=== PATIENT | female | born 1965 | race Two or more races ===

== ENCOUNTER 2016-12-28 18:05 | Emergency (ER) | payer SELFPAY ==
[~2016-12-28] VITALS: Ht 167.6 cm; Wt 95.3 kg
[2016-12-28 18:18] VITALS: BP 148/89
[2016-12-28 18:49] LABS: Basophils # (auto) 0.1 uL; Basophils % (auto) 0.7 % (0.0-2.0); CONDITION Y; Eosinophils # (auto) 0.3 uL; Eosinophils % (auto) 3.9 % (0.0-7.0); Hematocrit 43.9 % (36.0-46.0); Hemoglobin 15.6 g/dL (12.2-16.2); Lymphocytes # (auto) 3.2 uL; Lymphocytes % (auto) 38.8 % (10.0-50.0); Mean Corpuscular Hemoglobin 31.8 pg (28.0-32.0); Mean Corpuscular Hgb Conc. 35.5 g/dL (32.0-36.0); Mean Corpuscular Volume 89.7 fL (80.0-100.0); Mean Platelet Volume 8.8 fL (7.4-10.4); Monocytes # (auto) 0.5 uL; Monocytes % (auto) 5.8 % (0.0-12.0); Neutrophils # (auto) 4.2 uL; Neutrophils % (auto) 50.8 % (37.0-80.0); Platelet Count (auto) 239 10^3/uL (140-450); Red Cell Distribution Width 12.9 % (11.6-16.0); White Blood Cell 8.3 10^3/uL (4.4-10.8)
[2016-12-28 19:24] LABS: Urine RBC None Seen /hpf (0 - 4)
[2016-12-28 19:28] LABS: Albumin 3.8 g/dL (3.4-5.0); Alkaline Phosphatase 88 U/L (45-117); Anion Gap 8 (5-15); Aspartate Aminotransferase 32 U/L (15-37); Bilirubin, Total 0.5 mg/dL (0.2-1.0); Blood Urea Nitrogen 12 mg/dL (7-18); Calcium 8.4 mg/dL (8.5-10.1); Carbon Dioxide 25 mmol/L (21-32); Chloride 104 mmol/L (98-107); GFR African American 104 mL/min; GFR Non-African American 86 mL/min; Glucose 117 mg/dL (74-106); Magnesium 2.6 mg/dL (1.6-2.6); Potassium 3.8 mmol/L (3.5-5.1); Sodium 137 mmol/L (136-145)
[2016-12-28 19:38] LABS: Urine Bilirubin Negative (Negative); Urine Blood Negative /uL (Negative); Urine Color Colorless (Yellow); Urine Glucose Normal (Normal); Urine Ketone Negative (Negative); Urine Nitrite Negative (Negative); Urine Squamous Epithelial Cell FEW /hpf (<5); Urine Urobilinogen Normal (Negative); Urine pH 6.5 (5.0-8.0)
== END 2016-12-28 20:57 | disposition left against medical advice (07) ==
LOC: ER 18:19
DX: R07.89 Other chest pain (principal); R42 Dizziness and giddiness; R20.0 Anesthesia of skin; R11.0 Nausea; Z53.21 Procedure and treatment not carried out due to patient leaving prior to being seen by health care provider
CPT/HCPCS: 36415; 71020; 80053; 81001; 83735; 84484; 85025

== ENCOUNTER 2018-12-27 13:11 | Emergency (ER) | payer BC, MEDICAID ==
[~2018-12-27] VITALS: Ht 154.9 cm; Wt 104.3 kg
[2018-12-27 14:19] LABS: Basophils # (auto) 0.1 uL; Basophils % (auto) 0.8 % (0.0-2.0); Eosinophils # (auto) 0.3 uL; Eosinophils % (auto) 4.1 % (0.0-7.0); Hematocrit 44.3 % (36.0-46.0); Hemoglobin 14.8 g/dL (12.2-16.2); Lymphocytes % (auto) 31.5 % (10.0-50.0); Mean Corpuscular Hemoglobin 32.1 pg (28.0-32.0); Mean Corpuscular Hgb Conc. 33.5 g/dL (32.0-36.0); Mean Corpuscular Volume 95.9 fL (80.0-100.0); Monocytes # (auto) 0.4 uL; Monocytes % (auto) 6.8 % (0.0-12.0); Neutrophils # (auto) 3.7 uL; Neutrophils % (auto) 56.8 % (37.0-80.0); Platelet Count (auto) 233 10^3/uL (140-450); Red Blood Cells 4.62 10^6/uL (4.0-5.20); Red Cell Distribution Width 13.7 % (11.8-14.3); White Blood Cell 6.4 10^3/uL (4.4-10.8)
[2018-12-27 14:42] LABS: Alanine Aminotransferase 52 U/L (13-56); Albumin 3.5 g/dL (3.4-5.0); Anion Gap 6 (5-15); Aspartate Aminotransferase 28 U/L (15-37); BUN/Creatinine Ratio 16.5; Blood Urea Nitrogen 14 mg/dL (7-18); Calcium 8.1 mg/dL (8.5-10.1); Carbon Dioxide 26 mmol/L (21-32); Chloride 108 mmol/L (98-107); GFR African American 96 mL/min; GFR Non-African American 79 mL/min; Glucose 100 mg/dL (74-106); Potassium 3.8 mmol/L (3.5-5.1); Sodium 140 mmol/L (136-145)
[2018-12-27 14:46] LABS: Alkaline Phosphatase 54 U/L (45-117); Bilirubin, Total 0.3 mg/dL (0.2-1.0); Total Protein 7.3 g/dL (6.4-8.2)
[2018-12-27 18:42] LABS: Urine Bacteria FEW /hpf (None Seen); Urine Blood 2+ /uL (Negative); Urine Mucus FEW (None Seen); Urine Specific Gravity 1.028 (1.001-1.035); Urine WBC 81 /hpf (0 - 5)
[2018-12-27] MEDS ORDERED: ONDANSETRON HCL 4 MG/2 ML VIAL IM ONE (18:45)
[2018-12-27] MEDS: FAMOTIDINE (10MG/ML) 2ML VL IV ONE ×2 (19:20→19:45)
[2018-12-27 19:55] VITALS: BP 142/81
== END 2018-12-27 20:00 | disposition home or self-care (01) ==
LOC: ER 13:11
DX: N39.0 Urinary tract infection, site not specified (principal); Z88.0 Allergy status to penicillin; Z91.018 Allergy to other foods; Z91.012 Allergy to eggs
CPT/HCPCS: 36415; 71046; 76705; 80053; 81001; 83690; 84484; 85025; 93005; 96372; 96374; 99284; J2405; J3490

== ENCOUNTER → 2019-04-14 | Outpatient (CLI) | payer BC ==
[2019-04-14 07:45] LABS: Basophils # (auto) 0 uL; Basophils % (auto) 0.7 % (0.0-2.0); Eosinophils # (auto) 0.2 uL; Eosinophils % (auto) 3.1 % (0.0-7.0); Hematocrit 43.7 % (36.0-46.0); Hemoglobin 14.9 g/dL (12.2-16.2); Lymphocytes # (auto) 1.7 uL; Lymphocytes % (auto) 24.6 % (10.0-50.0); Mean Corpuscular Hemoglobin 32.9 pg (28.0-32.0); Mean Corpuscular Hgb Conc. 34.2 g/dL (32.0-36.0); Mean Corpuscular Volume 96.2 fL (80.0-100.0); Monocytes # (auto) 0.5 uL; Monocytes % (auto) 6.5 % (0.0-12.0); Neutrophils # (auto) 4.5 uL; Neutrophils % (auto) 65.1 % (37.0-80.0); Platelet Count (auto) 237 10^3/uL (140-450); Red Blood Cells 4.54 10^6/uL (4.0-5.20); Red Cell Distribution Width 13.2 % (11.8-14.3); White Blood Cell 6.9 10^3/uL (4.4-10.8)
[2019-04-14 08:42] LABS: Albumin 3.9 g/dL (3.4-5.0); Calcium 8.8 mg/dL (8.5-10.1)
[2019-04-14 08:48] LABS: BUN/Creatinine Ratio 16.7
[2019-04-14 08:49] LABS: Bilirubin, Total 0.5 mg/dL (0.2-1.0); Total Protein 7.5 g/dL (6.4-8.2); Uric Acid 5.8 mg/dL (2.6-6.0)
[2019-04-14 08:59] LABS: Beta HCG, Quantitative < 1 mlU/mL (1-3); Thyroid Stimulating Hormone 3.47 uIU/mL (0.358-3.74)
== END | disposition home or self-care (01) ==
LOC: LAB 07:12
PROVIDERS: ATTEND Internal Medicine
DX: G47.00 Insomnia, unspecified (principal); F41.9 Anxiety disorder, unspecified; R10.2 Pelvic and perineal pain; R51 Headache
CPT/HCPCS: 36415; 80053; 80061; 84443; 84550; 84702; 85025; 86038; 86431

== ENCOUNTER 2019-04-20 14:18 | Emergency (ER) | payer BC ==
[~2019-04-20] VITALS: Ht 154.9 cm; Wt 100.7 kg
[2019-04-20 14:27] VITALS: BP 118/85
[2019-04-20] MEDS ORDERED: METHOCARBAMOL 500 MG TAB PO ONE (16:00)
== END 2019-04-20 17:22 | disposition home or self-care (01) ==
LOC: ER 14:21 → MERGE 14:21 → ER 17:22
DX: M25.562 Pain in left knee (principal); M54.5 Low back pain; Z91.018 Allergy to other foods; Z91.012 Allergy to eggs
CPT/HCPCS: 29505; 72100; 73562

== ENCOUNTER → 2019-06-13 | Outpatient (CLI) | payer BC ==
[2019-06-13 08:02] LABS: Basophils # (auto) 0 uL; Basophils % (auto) 0.6 % (0.0-2.0); Eosinophils # (auto) 0.2 uL; Eosinophils % (auto) 4.3 % (0.0-7.0); Hemoglobin 14.9 g/dL (12.2-16.2); Lymphocytes # (auto) 1.4 uL; Mean Corpuscular Hemoglobin 32.9 pg (28.0-32.0); Mean Corpuscular Volume 96.9 fL (80.0-100.0); Monocytes # (auto) 0.3 uL; Monocytes % (auto) 6.1 % (0.0-12.0); Neutrophils # (auto) 3.3 uL; Nucleated Red Blood Cells % 0.1 %; Platelet Count (auto) 234 10^3/uL (140-450); Red Blood Cells 4.54 10^6/uL (4.0-5.20); Red Cell Distribution Width 13.1 % (11.8-14.3); White Blood Cell 5.3 10^3/uL (4.4-10.8)
[2019-06-13 08:38] LABS: Potassium 4.2 mmol/L (3.5-5.1)
[2019-06-13 08:53] LABS: Albumin 3.6 g/dL (3.4-5.0); BUN/Creatinine Ratio 22.2; Bilirubin, Total 0.4 mg/dL (0.2-1.0); Calcium 8.6 mg/dL (8.5-10.1)
[2019-06-13 08:59] LABS: Beta HCG, Quantitative < 1 mlU/mL (1-3); Thyroid Stimulating Hormone 3.04 uIU/mL (0.358-3.74)
[2019-06-13 10:05] LABS: Leuteinizing Hormone 8.8 IU/L; Prolactin 9.69 ng/mL (2.8-29.2)
[2019-06-13 10:06] LABS: Follicle Stimulating Hormone 6.4 IU/L (SEE BELOW)
== END | disposition home or self-care (01) ==
LOC: LAB 07:19
PROVIDERS: ATTEND Internal Medicine
DX: N91.2 Amenorrhea, unspecified (principal)
CPT/HCPCS: 36415; 80053; 82670; 82672; 83001; 83002; 84144; 84146; 84443; 84702; 85025

== ENCOUNTER 2019-07-03 13:33 | Emergency (ER) | payer BC ==
[~2019-07-03] VITALS: Ht 154.9 cm; Wt 99.8 kg
[2019-07-03 14:57] LABS: Urine Bacteria NONE SEEN /hpf (None Seen); Urine Blood 1+ /uL (Negative); Urine Mucus FEW (None Seen); Urine Specific Gravity 1.031 (1.001-1.035); Urine WBC 11 /hpf (0 - 5)
[2019-07-03 15:02] LABS: Basophils # (auto) 0 uL; Eosinophils # (auto) 0.2 uL; Eosinophils % (auto) 4.9 % (0.0-7.0); Hematocrit 44.5 % (36.0-46.0); Hemoglobin 15.3 g/dL (12.2-16.2); Lymphocytes # (auto) 1.8 uL; Lymphocytes % (auto) 38.9 % (10.0-50.0); Mean Corpuscular Hemoglobin 32.9 pg (28.0-32.0); Mean Corpuscular Hgb Conc. 34.3 g/dL (32.0-36.0); Mean Corpuscular Volume 95.8 fL (80.0-100.0); Monocytes # (auto) 0.6 uL; Neutrophils # (auto) 1.9 uL; Neutrophils % (auto) 41.2 % (37.0-80.0); Nucleated Red Blood Cells % 0.2 %; Platelet Count (auto) 212 10^3/uL (140-450); Red Blood Cells 4.65 10^6/uL (4.0-5.20); Red Cell Distribution Width 13.5 % (11.8-14.3); White Blood Cell 4.6 10^3/uL (4.4-10.8)
[2019-07-03 15:22] LABS: Albumin 3.7 g/dL (3.4-5.0); Calcium 8.9 mg/dL (8.5-10.1); Potassium 4.2 mmol/L (3.5-5.1)
[2019-07-03 15:34] LABS: BUN/Creatinine Ratio 18.4; Bilirubin, Total 0.3 mg/dL (0.2-1.0); Total Protein 7.3 g/dL (6.4-8.2)
[2019-07-03 17:39] LABS: Magnesium 2.2 mg/dL (1.6-2.6)
[2019-07-03] MEDS ORDERED: ALBUTEROL SULF 2.5 MG/0.5ML(0.5%) NEB SOLN NEB ONE (18:30)
[2019-07-03] MEDS ORDERED: IPRATROPIUM BROM 0.5 MG/2.5ML INH SOL NEB ONE (18:30)
[2019-07-03] MEDS ORDERED: ASPirin 81 mg TAB PO ONE (18:30)
[2019-07-03 19:36] VITALS: BP 125/60
[2019-07-03] MEDS ORDERED: methylPREDNISolone SOD SUCC 125 MG/2 ML VL IV ONE (20:15)
[2019-07-03] MEDS ORDERED: KETOROLAC TROMETH 15 mg/ml 1ML VL IV ONE (20:15)
[2019-07-03] MEDS ORDERED: ONDANSETRON HCL 4 MG/2 ML VIAL ONE (20:36)
[2019-07-03] MEDS ORDERED: ONDANSETRON HCL 4 MG/2 ML VIAL IV ONE (20:45)
== END 2019-07-03 21:35 | disposition home or self-care (01) ==
LOC: ER 13:33
DX: J20.9 Acute bronchitis, unspecified (principal); N39.0 Urinary tract infection, site not specified; R07.81 Pleurodynia
CPT/HCPCS: 36415; 71046; 80053; 81001; 83735; 84484; 84702; 85025; 85379; 93005; 94640; 96374; 96375; 99285; J1885; J2405; J2930; J7611; J7644

== ENCOUNTER → 2019-07-07 | Emergency (ER) | payer BC ==
[~2019-07-07] VITALS: Ht 154.9 cm; Wt 99.8 kg
[~2019-07-07] MED LIST: ACETAMINOPHEN 325 MG TAB PO ONE; SODIUM CHLORIDE 0.9% 2,000 ML IV ONE
[2019-07-07 16:57] LABS: Basophils # (auto) 0 uL; Basophils % (auto) 0.2 % (0.0-2.0); Eosinophils # (auto) 0 uL; Hematocrit 45.7 % (36.0-46.0); Hemoglobin 15.4 g/dL (12.2-16.2); Lymphocytes # (auto) 1.1 uL; Lymphocytes % (auto) 15.4 % (10.0-50.0); Mean Corpuscular Hemoglobin 32.3 pg (28.0-32.0); Mean Corpuscular Hgb Conc. 33.7 g/dL (32.0-36.0); Mean Corpuscular Volume 95.9 fL (80.0-100.0); Monocytes # (auto) 0.2 uL; Monocytes % (auto) 3.1 % (0.0-12.0); Neutrophils # (auto) 5.8 uL; Neutrophils % (auto) 81.3 % (37.0-80.0); Platelet Count (auto) 246 10^3/uL (140-450); Red Blood Cells 4.77 10^6/uL (4.0-5.20); Red Cell Distribution Width 13.1 % (11.8-14.3); White Blood Cell 7.2 10^3/uL (4.4-10.8)
[2019-07-07 17:07] LABS: Alanine Aminotransferase 38 U/L (13-56); Albumin 3.8 g/dL (3.4-5.0); Anion Gap 8 (5-15); Blood Urea Nitrogen 15 mg/dL (7-18); Calcium 8.6 mg/dL (8.5-10.1); Carbon Dioxide 23 mmol/L (21-32); Chloride 105 mmol/L (98-107); Glucose 170 mg/dL (74-106); Potassium 3.9 mmol/L (3.5-5.1); Sodium 136 mmol/L (136-145)
[2019-07-07 17:13] LABS: Alkaline Phosphatase 58 U/L (45-117); Aspartate Aminotransferase 16 U/L (15-37); BUN/Creatinine Ratio 17.4; Bilirubin, Total 0.2 mg/dL (0.2-1.0); GFR African American 94 mL/min; GFR Non-African American 78 mL/min; Total Protein 7.8 g/dL (6.4-8.2)
[2019-07-07 20:07] LABS: INR 0.96 (0.9-1.15); Partial Thromboplastin Time 25.9 sec (23.64-32.05)
[2019-07-07 20:10] LABS: Urine Bacteria FEW /hpf (None Seen); Urine Blood 3+ /uL (Negative); Urine Mucus FEW (None Seen); Urine Specific Gravity 1.011 (1.001-1.035); Urine WBC 20 /hpf (0 - 5)
[2019-07-08 00:51] VITALS: BP 123/71
== END | disposition home or self-care (01) ==
LOC: ER 15:43
DX: J45.901 Unspecified asthma with (acute) exacerbation (principal); J01.00 Acute maxillary sinusitis, unspecified; N39.0 Urinary tract infection, site not specified
CPT/HCPCS: 36415; 71046; 80053; 81001; 83605; 84484; 85025; 85379; 85610; 85730; 87040; 87804; 99284; J7030

== ENCOUNTER 2019-07-15 12:03 | Inpatient (IN) | payer BC, MEDICAID ==
[~2019-07-15] VITALS: Ht 154.9 cm; Wt 109.1 kg
[2019-07-15] MEDS ORDERED: IPRATROPIUM BROM 0.5 MG/2.5ML INH SOL NEB ONE (12:45)
[2019-07-15] MEDS ORDERED: ALBUTEROL SULF 2.5 MG/0.5ML(0.5%) NEB SOLN NEB ONE (12:45)
[2019-07-15] MEDS ORDERED: methylPREDNISolone SOD SUCC 1,000 MG in SODIUM CHL 0.9% 250 ML IV ONE (13:00)
[2019-07-15 13:13] LABS: Basophils # (auto) 0.1 10 ^3/uL (0-0.2); Basophils % (auto) 0.5 % (0.0-2.0); Eosinophils # (auto) 0.1 10 ^3/uL (0-0.8); Eosinophils % (auto) 1.2 % (0.0-7.0); Hematocrit 43.8 % (36.0-46.0); Hemoglobin 14.9 g/dL (12.2-16.2); Lymphocytes # (auto) 2.5 10 ^3/uL (0.4-5.4); Mean Corpuscular Hemoglobin 32.5 pg (28.0-32.0); Mean Corpuscular Hgb Conc. 34.1 g/dL (32.0-36.0); Mean Corpuscular Volume 95.6 fL (80.0-100.0); Monocytes # (auto) 0.8 10 ^3/uL (0-1.3); Monocytes % (auto) 7.5 % (0.0-12.0); Neutrophils # (auto) 7.5 10 ^3/uL (1.6-8.6); Neutrophils % (auto) 67.8 % (37.0-80.0); Nucleated Red Blood Cells % 0.1 %; Platelet Count (auto) 251 10^3/uL (140-450); Red Blood Cells 4.58 10^6/uL (4.0-5.20); Red Cell Distribution Width 13.2 % (11.8-14.3)
[2019-07-15 13:28] LABS: Calcium 8.5 mg/dL (8.5-10.1); Potassium 3.5 mmol/L (3.5-5.1)
[2019-07-15 13:31] LABS: Albumin 3.8 g/dL (3.4-5.0)
[2019-07-15 13:34] LABS: Bilirubin, Total 0.4 mg/dL (0.2-1.0); Total Protein 7.4 g/dL (6.4-8.2)
[2019-07-15] MEDS ORDERED: levoFLOXacin 500MG 100 ML IV ONE (14:45)
[2019-07-15] MEDS ORDERED: LACTULOSE 20Gm/30ML SOLN PO PRN ×2 (16:15)
[2019-07-15] MEDS ORDERED: TEMAZEPAM 15 MG CAP PO PRN (16:15)
[2019-07-15] MEDS ORDERED: NITROGLYCERIN 0.4 MG SL TAB SL PRN (16:15)
[2019-07-15] MEDS ORDERED: PROMETHAZINE HCL 25 MG/ML 1ML IV PRN (16:15)
[2019-07-15] MEDS ORDERED: MORPHINE SULF INJ 2 MG/ML SYRINGE 1ML IV PRN (16:15)
[2019-07-15] MEDS: SODIUM CHLORIDE 0.9% 1,000 ML IV SCH ×2 (17:11→18:43)
[2019-07-15 18:08] VITALS: BP 130/88
--- NOTE | 2019-07-15 19:05 | NUR ---
PT CHECKED FOR PRN TX. PT IS RESTING WITH NO ACUTE DISTRESS NOTED. TX IS NOT INDICATED. PT TO CALL IF TX IS NEEDED. HR 106 RR 18 POX 92 ON ROOM AIR. B/S CLEAR.
[2019-07-15 19:27] LABS: CRP High Sensitivity > 0.950 mg/dL (< 0.3)
--- NOTE | 2019-07-15 19:30 | NUR ---
Opening Shift Note Assumed care of patient, awake and alert. No S/S of distress/SOB or pain. Bed in lowest locked position, side rails up x2, call light within reach. at bedside. Instructed on POC and to call for assist PRN, will continue to monitor for changes Q1hr and PRN.
[2019-07-15] MEDS: FAMOTIDINE 20 MG TAB PO SCH (21:16)
[2019-07-15] MEDS: traMADol HCL 50 MG TAB PO PRN (21:17)
[2019-07-15 22:00] VITALS: BP 124/68
[2019-07-15 22:06] LABS: Urine Bacteria NONE SEEN /hpf (None Seen); Urine Blood 2+ /uL (Negative); Urine Mucus FEW (None Seen); Urine Specific Gravity 1.026 (1.001-1.035); Urine WBC <1 /hpf (0 - 5)
[2019-07-15] MEDS: ACETAMINOPHEN 500 MG TAB PO PRN (22:09)
--- NOTE | 2019-07-15 22:10 | NUR ---
Patient reporting 4/10 sternal pain, Tramadol administered as ordered at 2116. Pain reassessed and found to be now 4/10 pain. Patient made aware Tylenol available, patient requesting Tylenol at this time. Will administer as ordered and continue to monitor.
[2019-07-15 22:12] LABS: Alcohol, Urine < 3.0 mg/dL (0-5); Amphetamine Screen, Urine NEGATIVE (NEGATIVE); Barbiturate Scree,Urine NEGATIVE (NEGATIVE); Benzodiazephine Screen, Urine NEGATIVE (NEGATIVE); Cannabinoid Screen, Urine NEGATIVE (NEGATIVE); Cocaine Screen, Urine NEGATIVE (NEGATIVE); Opiate Scree,Urine NEGATIVE (NEGATIVE); Phencyclidine Screen, Urine NEGATIVE (NEGATIVE)
[2019-07-15] MEDS: ALBUTEROL SULF 2.5 MG/0.5ML(0.5%) NEB SOLN NEB PRN (22:45)
--- NOTE | 2019-07-15 23:09 | NUR ---
Patient reporting 0/10 pain at this time. No s/s of distress. Will continue to monitor.
[2019-07-15 23:13] VITALS: BP 124/68
[2019-07-16 05:00] VITALS: BP 123/71
--- NOTE | 2019-07-16 05:05 | NUR ---
Patient reporting 2/10 pain during morning vital sign check. Patient refusing pain medication and alternative pain relief at this time. No s/s of distress. Will continue to monitor.
--- NOTE | 2019-07-16 06:40 | NUR ---
Closing Note Patient lying in bed, awake and alert. Bed in lowest locked position, side rails up x2, call light within reach. No s/s of distress. Care endorsed to dayshift RN.
--- NOTE | 2019-07-16 07:29 | NUR ---
pt assessed for prn hhn tx. pt is on room air, spo2 94%, hr 105, rr 18. hhn not indicated. will continue to monitor.
[2019-07-16 08:00] VITALS: BP 132/90
[2019-07-16 09:00] VITALS: BP 132/90
[2019-07-16] MEDS ORDERED: IPRATROPIUM BROM 0.5 MG/2.5ML INH SOL NEB ONE (09:30)
[2019-07-16] MEDS ORDERED: ALBUTEROL SULF 2.5 MG/0.5ML(0.5%) NEB SOLN NEB ONE (09:30)
[2019-07-16] MEDS: FAMOTIDINE 20 MG TAB PO SCH ×2 (09:50→21:42)
[2019-07-16] MEDS: ASPirin 81 mg TAB PO SCH (09:50)
[2019-07-16] MEDS: ENOXAPARIN SOD 40 MG/0.4 ML SYRINGE SC SCH (09:51)
[2019-07-16 10:31] LABS: Basophils # (auto) 0 10 ^3/uL (0-0.2); Basophils % (auto) 0.2 % (0.0-2.0); Eosinophils # (auto) 0 10 ^3/uL (0-0.8); Hematocrit 43.9 % (36.0-46.0); Hemoglobin 14.9 g/dL (12.2-16.2); Lymphocytes # (auto) 1.1 10 ^3/uL (0.4-5.4); Lymphocytes % (auto) 5.9 % (10.0-50.0); Mean Corpuscular Hemoglobin 32.8 pg (28.0-32.0); Mean Corpuscular Volume 96.7 fL (80.0-100.0); Monocytes # (auto) 0.4 10 ^3/uL (0-1.3); Neutrophils # (auto) 17.2 10 ^3/uL (1.6-8.6); Neutrophils % (auto) 91.9 % (37.0-80.0); Platelet Count (auto) 253 10^3/uL (140-450); Red Blood Cells 4.54 10^6/uL (4.0-5.20); Red Cell Distribution Width 13.3 % (11.8-14.3); White Blood Cell 18.7 10^3/uL (4.4-10.8)
[2019-07-16 10:56] LABS: Cholesterol 185 mg/dL (< 200); Triglycerides 63 mg/dL (< 150)
[2019-07-16 10:59] LABS: HDL Cholesterol 59 mg/dL (40-59); LDL Cholesterol 109 mg/dL (< 100)
[2019-07-16 11:26] LABS: Calcium 8.6 mg/dL (8.5-10.1); Magnesium 2.3 mg/dL (1.6-2.6); Potassium 3.8 mmol/L (3.5-5.1)
[2019-07-16 11:31] LABS: BUN/Creatinine Ratio 18.2
[2019-07-16] MEDS: IPRATROPIUM BROM 0.5 MG/2.5ML INH SOL NEB SCH ×3 (11:53→23:35)
[2019-07-16] MEDS: ACETAMINOPHEN 500 MG TAB PO PRN (12:55)
[2019-07-16 13:00] VITALS: BP 117/70
[2019-07-16 17:00] VITALS: BP 121/73
[2019-07-16] MEDS: SODIUM CHLORIDE 0.9% 1,000 ML IV SCH (17:53)
--- NOTE | 2019-07-16 19:20 | NUR ---
Opening Shift Note Assumed care of patient, eyes closed, respirations even and unlabored, appears asleep. No S/S of distress/SOB or pain. Bed in lowest locked position, side rails up x2, call light within reach. Instructed on POC and to call for assist PRN, will continue to monitor for changes Q1hr and PRN.
[2019-07-16] MEDS: ALBUTEROL SULF 2.5 MG/0.5ML(0.5%) NEB SOLN NEB PRN ×2 (19:24→23:36)
[2019-07-16] MEDS: traMADol HCL 50 MG TAB PO PRN (21:43)
[2019-07-16 22:00] VITALS: BP 103/63
--- NOTE | 2019-07-16 23:34 | NUR ---
Patient reporting 10/10 sternal pain, patient requesting Tramadol, Tramadol administered as ordered at 2143. Pain reassessed and found to be now 0/10 pain. Patient lying in bed, awake and alert, no s/s of distress. Will continue to monitor.
[2019-07-17 05:00] VITALS: BP 107/74
[2019-07-17] MEDS: IPRATROPIUM BROM 0.5 MG/2.5ML INH SOL NEB SCH ×2 (06:16→11:20)
--- NOTE | 2019-07-17 07:00 | NUR ---
Closing Note Patient lying in bed, eyes closed, respirations even and unlabored, appears asleep. Bed in lowest locked position, side rails up x2, call light within reach. No s/s of distress. Care endorsed to dayshift RN.
[2019-07-17 08:00] VITALS: BP 138/94
[2019-07-17 08:26] VITALS: BP 138/94
[2019-07-17] MEDS: SODIUM CHLORIDE 0.9% 1,000 ML IV SCH (08:52)
[2019-07-17] MEDS: ASPirin 81 mg TAB PO SCH (10:06)
[2019-07-17] MEDS: FAMOTIDINE 20 MG TAB PO SCH (10:06)
[2019-07-17] MEDS: ENOXAPARIN SOD 40 MG/0.4 ML SYRINGE SC SCH (10:06)
[2019-07-17 12:30] VITALS: BP 123/67
[2019-07-17 14:23] VITALS: BP 100/61
--- NOTE | 2019-07-17 15:11 | NUR ---
PATIENT DISCHARGED HOME WITH FAMILY. TELEMETRY BOX REMOVED AND RETURNED TO TELEMETRY. ALL DISCHARGE PAPERWORK SIGNED. ALL DISCHARGE INSTRUCTIONS GIVEN.
== END 2019-07-17 15:10 | disposition home or self-care (01) | DRG 202 ==
LOC: ER 12:10 → TELE 12:11 → TELE-WESTW 17:44
PROVIDERS: ADMIT Internal Medicine; ATTEND Internal Medicine
DX: J20.9 Acute bronchitis, unspecified (principal); J18.9 Pneumonia, unspecified organism; Z68.42 Body mass index [BMI] 45.0-49.9, adult; J98.11 Atelectasis; F41.9 Anxiety disorder, unspecified; D72.829 Elevated white blood cell count, unspecified; R07.89 Other chest pain; E66.9 Obesity, unspecified; Z91.012 Allergy to eggs; Z91.018 Allergy to other foods; Z82.49 Family history of ischemic heart disease and other diseases of the circulatory system; Z80.9 Family history of malignant neoplasm, unspecified
CPT/HCPCS: 36415; 71046; 71250; 80048; 80053; 80061; 80307; 81001; 82550; 83036; 83735; 83880; 84439; 84443; 84484; 85025; 85379; 85652; 86141; 87804; 93005; 93306; 94640; 96365; 96366; 96368; G0378; J1956

== ENCOUNTER → 2019-08-29 | Outpatient (CLI) | payer BC | END | disposition home or self-care (01) | LOC: LAB 11:01 | PROVIDERS: ATTEND Specialist | DX: N91.2 Amenorrhea, unspecified (principal) | CPT/HCPCS: 36415; 84702 ==

== ENCOUNTER → 2019-11-07 | Outpatient (CLI) | payer OTHER | END | disposition home or self-care (01) | LOC: LAB 11:17 | PROVIDERS: ATTEND Physician Assistant | DX: Z03.818 Encounter for observation for suspected exposure to other biological agents ruled out (principal) | CPT/HCPCS: 87635 ==

== ENCOUNTER 2020-01-12 09:49 | Emergency (ER) | payer BC ==
[~2020-01-12] VITALS: Ht 154.9 cm; Wt 102.1 kg
[2020-01-12 10:27] LABS: Basophils # (auto) 0.1 10 ^3/uL (0-0.2); Basophils % (auto) 1.4 % (0.0-2.0); Eosinophils # (auto) 0.2 10 ^3/uL (0-0.8); Eosinophils % (auto) 3.1 % (0.0-7.0); Hematocrit 42.5 % (36.0-46.0); Hemoglobin 14.9 g/dL (12.2-16.2); Lymphocytes # (auto) 1.9 10 ^3/uL (0.4-5.4); Lymphocytes % (auto) 24.7 % (10.0-50.0); Mean Corpuscular Hemoglobin 33.5 pg (28.0-32.0); Mean Corpuscular Hgb Conc. 35.1 g/dL (32.0-36.0); Mean Corpuscular Volume 95.4 fL (80.0-100.0); Monocytes # (auto) 0.5 10 ^3/uL (0-1.3); Monocytes % (auto) 7.2 % (0.0-12.0); Neutrophils # (auto) 4.8 10 ^3/uL (1.6-8.6); Neutrophils % (auto) 63.6 % (37.0-80.0); Platelet Count (auto) 246 10^3/uL (140-450); Red Blood Cells 4.45 10^6/uL (4.0-5.20); Red Cell Distribution Width 13.1 % (11.8-14.3); White Blood Cell 7.6 10^3/uL (4.4-10.8)
[2020-01-12] MEDS ORDERED: ONDANSETRON HCL 4 MG/2 ML VIAL IV ONE (10:30)
[2020-01-12] MEDS ORDERED: MORPHINE SULFATE 4 MG/ML SYR/VIAL IV ONE (10:30)
[2020-01-12 10:36] VITALS: BP 123/57
[2020-01-12 10:43] LABS: Albumin 3.9 g/dL (3.4-5.0); Calcium 8.4 mg/dL (8.5-10.1); Potassium 3.8 mmol/L (3.5-5.1)
[2020-01-12 10:46] LABS: BUN/Creatinine Ratio 22.6; Bilirubin, Total 0.4 mg/dL (0.2-1.0)
[2020-01-12 11:20] LABS: Urine Bacteria NONE SEEN /hpf (None Seen); Urine Blood 3+ /uL (Negative); Urine WBC 287 /hpf (0 - 5)
[2020-01-12 11:36] LABS: Urine Specific Gravity 1.023 (1.001-1.035)
[2020-01-12] MEDS ORDERED: cefTRIAXone 1GM/50ML D5W 50 ML IV ONE (12:00)
== END 2020-01-12 14:25 | disposition home or self-care (01) ==
LOC: EEVIPCON 09:49 → ER 09:49
DX: N39.0 Urinary tract infection, site not specified (principal); N93.9 Abnormal uterine and vaginal bleeding, unspecified; Z91.012 Allergy to eggs; Z91.018 Allergy to other foods
CPT/HCPCS: 36415; 76830; 76856; 80053; 81001; 84702; 85025; 96365; 96375; 99284; J0696; J2270; J2405

== ENCOUNTER → 2020-01-12 | Outpatient (CLI) | payer BC ==
[2020-01-12 07:49] LABS: Basophils # (auto) 0.1 10 ^3/uL (0-0.2); Eosinophils # (auto) 0.2 10 ^3/uL (0-0.8); Hematocrit 43.2 % (36.0-46.0); Hemoglobin 14.6 g/dL (12.2-16.2); Lymphocytes # (auto) 1.6 10 ^3/uL (0.4-5.4); Lymphocytes % (auto) 28.5 % (10.0-50.0); Mean Corpuscular Hemoglobin 32.8 pg (28.0-32.0); Mean Corpuscular Hgb Conc. 33.9 g/dL (32.0-36.0); Mean Corpuscular Volume 96.7 fL (80.0-100.0); Monocytes # (auto) 0.5 10 ^3/uL (0-1.3); Monocytes % (auto) 8.5 % (0.0-12.0); Neutrophils # (auto) 3.3 10 ^3/uL (1.6-8.6); Nucleated Red Blood Cells % 0.1 %; Platelet Count (auto) 230 10^3/uL (140-450); Red Blood Cells 4.46 10^6/uL (4.0-5.20); Red Cell Distribution Width 13.2 % (11.8-14.3); White Blood Cell 5.7 10^3/uL (4.4-10.8)
[2020-01-12 08:15] LABS: Potassium 3.8 mmol/L (3.5-5.1)
[2020-01-12 08:22] LABS: Albumin 3.9 g/dL (3.4-5.0); BUN/Creatinine Ratio 19.5; Bilirubin, Total 0.4 mg/dL (0.2-1.0); Calcium 8.3 mg/dL (8.5-10.1); Total Protein 7.1 g/dL (6.4-8.2)
== END | disposition home or self-care (01) ==
LOC: LAB 07:20
PROVIDERS: ATTEND Internal Medicine
DX: R10.2 Pelvic and perineal pain (principal)
CPT/HCPCS: 36415; 80053; 84702; 85025

== ENCOUNTER → 2020-01-13 | Outpatient (CLI) | payer BC ==
[2020-01-13 12:20] LABS: Basophils # (auto) 0.1 10 ^3/uL (0-0.2); Eosinophils # (auto) 0.3 10 ^3/uL (0-0.8); Eosinophils % (auto) 3.5 % (0.0-7.0); Hematocrit 42.2 % (36.0-46.0); Hemoglobin 14.3 g/dL (12.2-16.2); Lymphocytes # (auto) 1.9 10 ^3/uL (0.4-5.4); Lymphocytes % (auto) 26.4 % (10.0-50.0); Mean Corpuscular Hemoglobin 32.6 pg (28.0-32.0); Mean Corpuscular Hgb Conc. 33.8 g/dL (32.0-36.0); Mean Corpuscular Volume 96.5 fL (80.0-100.0); Monocytes # (auto) 0.4 10 ^3/uL (0-1.3); Monocytes % (auto) 6.1 % (0.0-12.0); Neutrophils # (auto) 4.6 10 ^3/uL (1.6-8.6); Platelet Count (auto) 226 10^3/uL (140-450); Red Blood Cells 4.37 10^6/uL (4.0-5.20); Red Cell Distribution Width 13.3 % (11.8-14.3); White Blood Cell 7.2 10^3/uL (4.4-10.8)
== END | disposition home or self-care (01) ==
LOC: LAB 12:02
PROVIDERS: ATTEND Specialist
DX: N93.9 Abnormal uterine and vaginal bleeding, unspecified (principal)
CPT/HCPCS: 36415; 85025

== ENCOUNTER → 2020-01-20 | Outpatient (CLI) | payer BC ==
[2020-01-20 08:27] LABS: Potassium 4.3 mmol/L (3.5-5.1)
[2020-01-20 08:38] LABS: Albumin 3.8 g/dL (3.4-5.0); BUN/Creatinine Ratio 26.3; Bilirubin, Total 0.4 mg/dL (0.2-1.0); Calcium 8.9 mg/dL (8.5-10.1); Total Protein 7.3 g/dL (6.4-8.2)
== END | disposition home or self-care (01) ==
LOC: LAB 07:16
PROVIDERS: ATTEND Specialist
DX: N93.9 Abnormal uterine and vaginal bleeding, unspecified (principal)
CPT/HCPCS: 36415; 80053

== ENCOUNTER 2020-03-16 09:03 | Inpatient (IN) | payer BC ==
[2020-03-12 12:46] LABS: Basophils # (auto) 0 10 ^3/uL (0-0.2); Basophils % (auto) 0.6 % (0.0-2.0); Eosinophils # (auto) 0.2 10 ^3/uL (0-0.8); Eosinophils % (auto) 2.8 % (0.0-7.0); Hematocrit 41.9 % (36.0-46.0); Hemoglobin 14.3 g/dL (12.2-16.2); Lymphocytes # (auto) 2.2 10 ^3/uL (0.4-5.4); Lymphocytes % (auto) 30.8 % (10.0-50.0); Mean Corpuscular Hemoglobin 32.8 pg (28.0-32.0); Mean Corpuscular Hgb Conc. 34.2 g/dL (32.0-36.0); Mean Corpuscular Volume 96.1 fL (80.0-100.0); Monocytes # (auto) 0.5 10 ^3/uL (0-1.3); Monocytes % (auto) 6.8 % (0.0-12.0); Neutrophils # (auto) 4.2 10 ^3/uL (1.6-8.6); Nucleated Red Blood Cells % 0.1 %; Platelet Count (auto) 244 10^3/uL (140-450); Red Blood Cells 4.36 10^6/uL (4.0-5.20); Red Cell Distribution Width 12.9 % (11.8-14.3); Urine Bacteria FEW /hpf (None Seen); Urine Blood 1+ /uL (Negative); Urine Mucus FEW (None Seen); Urine Specific Gravity 1.019 (1.001-1.035); Urine WBC 15 /hpf (0 - 5); White Blood Cell 7.1 10^3/uL (4.4-10.8)
[2020-03-12 12:56] LABS: INR 0.97 (0.9-1.15); Partial Thromboplastin Time 27.1 sec (23.0-31.2)
[2020-03-12 13:54] LABS: Albumin 3.8 g/dL (3.4-5.0); Calcium 8.8 mg/dL (8.5-10.1); Potassium 3.5 mmol/L (3.5-5.1)
[2020-03-12 13:59] LABS: BUN/Creatinine Ratio 19.2; Bilirubin, Total 0.4 mg/dL (0.2-1.0); Total Protein 7.1 g/dL (6.4-8.2)
[~2020-03-16] VITALS: Ht 154.9 cm; Wt 112.1 kg
[2020-03-16] MEDS ORDERED: fentaNYL CITRATE 100 MCG/2 ML VL ONE ×2 (12:42→13:52)
[2020-03-16] MEDS ORDERED: KETOROLAC TROMETH 30 MG/ML 1ML VIAL ONE (12:42)
[2020-03-16] MEDS ORDERED: DexAMETHasone SOD PHOS 10MG/1ML VIAL INJ ONE (12:42)
[2020-03-16] MEDS ORDERED: ONDANSETRON HCL 4 MG/2 ML VIAL ONE (12:42)
[2020-03-16] MEDS ORDERED: PROPOFOL 10 MG/ML 20 ML IV ONE (12:42)
[2020-03-16] MEDS ORDERED: GLYCOPYRROLATE 0.2 MG/ML 1ML VIAL ONE (12:42)
[2020-03-16] MEDS ORDERED: MEPERIDINE HCL (50 MG/ML) 1 ML VIAL ONE (12:42)
[2020-03-16] MEDS ORDERED: ROCURONIUM 10MG/ML 10ML VIAL IV ONE (12:42)
[2020-03-16] MEDS ORDERED: LIDOCAINE 2% (LOCAL ANESTH.) PF 5ml SDV ONE (12:42)
[2020-03-16] MEDS ORDERED: MIDAZOLAM HCL 1MG/1ML-2 ML VIAL ONE (12:42)
[2020-03-16] MEDS ORDERED: ceFAZolin 1GM/50ML 50 ML IV ONE (12:58)
[2020-03-16] MEDS ORDERED: ONDANSETRON HCL 4 MG/2 ML VIAL IV PRN (14:45)
[2020-03-16] MEDS ORDERED: HYDROmorphone HCL 2 MG/ML VL IV PRN (14:45)
[2020-03-16] MEDS ORDERED: ACETAMINOPHEN IV 100 ML IV ONE (15:00)
[2020-03-16 17:00] VITALS: BP 117/74
[2020-03-16] MEDS: LACTATED RINGER'S 1,000 ML IV SCH ×2 (17:10→21:40)
[2020-03-16] MEDS ORDERED: PNEUMOCOCCAL VACC POLYS 25 MCG/0.5 ML VIAL IM ONE (18:00)
[2020-03-16] MEDS: HYDROmorphone HCL 2 MG/ML VL IV PRN (18:30)
[2020-03-16 22:00] VITALS: BP 129/68
[2020-03-17] MEDS: LACTATED RINGER'S 1,000 ML IV SCH ×2 (04:20→11:00)
[2020-03-17 05:00] VITALS: BP 108/58
[2020-03-17] MEDS: HYDROmorphone HCL 2 MG/ML VL IV PRN ×4 (05:04→14:03)
[2020-03-17] MEDS: ONDANSETRON HCL 4 MG/2 ML VIAL IV PRN ×4 (05:05→14:03)
[2020-03-17 09:00] VITALS: BP 123/73
[2020-03-17 13:00] VITALS: BP 108/52
[2020-03-17] MEDS ORDERED: cefTRIAXone 1GM/50ML D5W 50 ML IV ONE ×2 (13:00)
--- NOTE | 2020-03-17 14:00 | NUR ---
REPLACED ABDOMINAL BINDER WITH A LARGE ONE. ABDOMINAL INCISION DRESSINGS CLEAN, DRY, AND INTACT.
--- NOTE | 2020-03-17 16:30 | NUR ---
Discharge instructions given as ordered. Encourage to follow up with PMD as instructed. All questions and concerns addressed. Patient verbalized understanding. Medication reconciliation form completed and copy given to patient. IV removed with catheter intact, pressure dressing applied, isabel catheter removed. Telemetry unit returned to ICU. Patient taken to vehicle via wheelchair with all personal belongings, accompanied by staff and family member. No distress noted at time of departure. Telemetry unit returned to ICU. Patient taken to vehicle via wheelchair with all personal belongings, accompanied by staff and family member. No distress noted at time of departure.
--- NOTE | 2020-03-19 17:35 | NUR ---
1728 03/19/20- I was not notified of pending SS consult regarding advance directive.
== END 2020-03-17 16:30 | disposition home or self-care (01) | DRG 744 ==
LOC: SUR 09:03 → OVERFLOW 09:04 → TELE-WESTW 16:29
PROVIDERS: ADMIT Specialist; ATTEND Specialist
PROC: 0UDB8ZZ Extraction of Endometrium, Via Natural or Artificial Opening Endoscopic (ICD-10-PCS; principal; 2020-03-16 13:00)
DX: N93.8 Other specified abnormal uterine and vaginal bleeding (principal); K57.92 Diverticulitis of intestine, part unspecified, without perforation or abscess without bleeding; Z68.42 Body mass index [BMI] 45.0-49.9, adult; E66.01 Morbid (severe) obesity due to excess calories; G89.29 Other chronic pain; J45.909 Unspecified asthma, uncomplicated; Z20.828 Contact with and (suspected) exposure to other viral communicable diseases
CPT/HCPCS: 36415; 80053; 81001; 84702; 85025; 85610; 85730; 86850; 86900; 86901; G0378; J0690; J0696; J1100; J1885; J2001; J2250; J2405; J2704

== ENCOUNTER 2020-03-21 12:27 | Inpatient (IN) | payer BC ==
[~2020-03-21] VITALS: Ht 154.9 cm; Wt 102.8 kg
[2020-03-21 14:18] LABS: Basophils # (auto) 0.1 10 ^3/uL (0-0.2); Basophils % (auto) 0.8 % (0.0-2.0); Eosinophils # (auto) 0.3 10 ^3/uL (0-0.8); Eosinophils % (auto) 3.2 % (0.0-7.0); Hematocrit 44.4 % (36.0-46.0); Hemoglobin 15.3 g/dL (12.2-16.2); Lymphocytes # (auto) 1.9 10 ^3/uL (0.4-5.4); Lymphocytes % (auto) 19.3 % (10.0-50.0); Mean Corpuscular Hemoglobin 33.1 pg (28.0-32.0); Mean Corpuscular Hgb Conc. 34.5 g/dL (32.0-36.0); Monocytes # (auto) 0.5 10 ^3/uL (0-1.3); Monocytes % (auto) 5.3 % (0.0-12.0); Neutrophils # (auto) 6.9 10 ^3/uL (1.6-8.6); Neutrophils % (auto) 71.4 % (37.0-80.0); Platelet Count (auto) 273 10^3/uL (140-450); Red Blood Cells 4.62 10^6/uL (4.0-5.20); Red Cell Distribution Width 13.4 % (11.8-14.3); White Blood Cell 9.6 10^3/uL (4.4-10.8)
[2020-03-21 14:46] LABS: Alanine Aminotransferase 35 U/L (13-56); Albumin 3.7 g/dL (3.4-5.0); Anion Gap 6 (5-15); Aspartate Aminotransferase 19 U/L (15-37); Blood Urea Nitrogen 15 mg/dL (7-18); Calcium 8.8 mg/dL (8.5-10.1); Carbon Dioxide 26 mmol/L (21-32); Chloride 105 mmol/L (98-107); GFR African American 103 mL/min; GFR Non-African American 85 mL/min; Glucose 92 mg/dL (74-106); Magnesium 2.2 mg/dL (1.6-2.6); Sodium 137 mmol/L (136-145)
[2020-03-21 14:51] LABS: Alkaline Phosphatase 77 U/L (45-117); Bilirubin, Total 0.4 mg/dL (0.2-1.0); Total Protein 7.6 g/dL (6.4-8.2)
[2020-03-21] MEDS ORDERED: IOHEXOL 350 MG/ML 100ML IJ ONE (15:38)
[2020-03-21 17:48] LABS: CRP High Sensitivity 2.99 mg/dL (< 0.3)
[2020-03-21] MEDS ORDERED: ACETAMINOPHEN 500 MG TAB PO PRN (18:30)
[2020-03-21] MEDS ORDERED: NITROGLYCERIN 0.4 MG SL TAB SL PRN (18:30)
[2020-03-21] MEDS ORDERED: MORPHINE SULF INJ 2 MG/ML SYRINGE 1ML IV PRN (18:30)
[2020-03-21] MEDS ORDERED: SODIUM CHLORIDE 0.9% 1,000 ML IV SCH (18:30)
[2020-03-21] MEDS ORDERED: ALBUTEROL SULF HFA 90MCG INH 200DOSE IN SCH (22:00)
[2020-03-21] MEDS: DOXYCYCLINE 100 MG TAB/CAP PO SCH (22:09)
[2020-03-21 23:30] VITALS: BP 130/75
[2020-03-21 23:40] VITALS: BP 130/75
--- NOTE | 2020-03-21 23:40 | NUR ---
Telemetry admit from [facility] admitted to Telemetry unit after SBAR received. Patient oriented to Yohana Tate RN primary RN, unit, room, bed, and unit policies regarding patient care and visiting hours. Patient now on continuous telemetry monitoring, tele box #9. Patient weighed by bedscale and encouraged to call if they need something. All questions and concerns addressed, patient verbalized understanding. Bed is in lowest locked position with bed rails up x2 and call light is within reach of the patient.
[2020-03-22] VITALS (7 sets, daily range): BP systolic 105–125; BP diastolic 70–76
--- NOTE | 2020-03-22 00:15 | NUR ---
Patient Anxious: Informed charge nurse that patient wished to speak to some one regarding not staying in the covid unit while waiting for covid test results. Patient extremely anxious. Charge nurse informed and notified this Rn that [employer] supervisor is to speak to the patient.
--- NOTE | 2020-03-22 00:48 | NUR ---
Was informed by Charge nurse that patient is very upset regarding being in the COVID unit for rule out. Called patient and spoke with her and informed her that when her results come back we can immediately bring her out if it is negative. Patient is extremely anxious, speaking very quickly and states she feels like her heart is racing and she will not even walk to the bathroom in fear of getting COVID. Offered to get patient something for anxiety and she declined. Informed her that if she requires anything before test results come back that she can page me and I will call her back. Verbalized understanding. Primary RN aware
--- NOTE | 2020-03-22 00:52 | NUR ---
Patient results are negative and charge nurse will assign a new bed assignment.
--- NOTE | 2020-03-22 01:15 | NUR ---
Patient transferred out of unit: Patient transferred out of unit after covid results show negative. Report given to Margaret SHAH. Patient transferred via wheel chair with all of her belongings. Patient tolerated well.
--- NOTE | 2020-03-22 01:20 | NUR ---
Tele[facility] from [facility] transfered from [facility] to Telemetry unit after SBAR received. Patient oriented to JOSE F BERMAN RN primary RN, unit, room, bed, and unit policies regarding patient care and visiting hours. Patient now on continuous telemetry monitoring, tele box #26 and telemetry reading on arrival to unit is SR 100. Patient weighed by bedscale and encouraged to call if they need something. Safety measures in place bed in lowest position side rails up x2 and call light with in reach. All questions and concerns addressed, patient verbalized understanding. Addendum: 03/22/20 at 0219 by JOSE F BERMAN RN RN Telemetry transfer from [facility]
[2020-03-22] MEDS ORDERED: PNEUMOCOCCAL VACC POLYS 25 MCG/0.5 ML VIAL IM ONE (01:45)
[2020-03-22] MEDS: ONDANSETRON HCL 4 MG/2 ML VIAL IV PRN ×2 (02:05→21:08)
[2020-03-22] MEDS: MORPHINE SULF INJ 2 MG/ML SYRINGE 1ML IV PRN ×2 (02:06→21:09)
[2020-03-22 07:49] LABS: Basophils # (auto) 0 10 ^3/uL (0-0.2); Basophils % (auto) 0.5 % (0.0-2.0); Eosinophils # (auto) 0.2 10 ^3/uL (0-0.8); Eosinophils % (auto) 3.1 % (0.0-7.0); Hematocrit 41.7 % (36.0-46.0); Hemoglobin 13.8 g/dL (12.2-16.2); Lymphocytes % (auto) 27.5 % (10.0-50.0); Mean Corpuscular Hemoglobin 32.3 pg (28.0-32.0); Mean Corpuscular Hgb Conc. 33.2 g/dL (32.0-36.0); Mean Corpuscular Volume 97.4 fL (80.0-100.0); Monocytes # (auto) 0.6 10 ^3/uL (0-1.3); Monocytes % (auto) 7.9 % (0.0-12.0); Neutrophils # (auto) 4.5 10 ^3/uL (1.6-8.6); Nucleated Red Blood Cells % 0.1 %; Platelet Count (auto) 252 10^3/uL (140-450); Red Blood Cells 4.28 10^6/uL (4.0-5.20); Red Cell Distribution Width 13.5 % (11.8-14.3); White Blood Cell 7.4 10^3/uL (4.4-10.8)
[2020-03-22 08:08] LABS: Albumin 3.1 g/dL (3.4-5.0); BUN/Creatinine Ratio 18.6; Calcium 8.2 mg/dL (8.5-10.1); Potassium 3.9 mmol/L (3.5-5.1)
[2020-03-22 08:10] LABS: Bilirubin, Total 0.6 mg/dL (0.2-1.0); Total Protein 6.6 g/dL (6.4-8.2)
[2020-03-22] MEDS: FAMOTIDINE 20 MG TAB PO SCH (09:22)
[2020-03-22] MEDS: DOXYCYCLINE 100 MG TAB/CAP PO SCH ×2 (09:22→21:07)
[2020-03-22] MEDS ORDERED: ASCORBIC ACID 1,000 MG TAB PO SCH (10:00)
[2020-03-22] MEDS ORDERED: ASCORBIC ACID 500 MG TAB PO SCH (10:00)
[2020-03-22] MEDS ORDERED: ZINC SULFATE 220mg CAP or TAB PO SCH (10:00)
[2020-03-22] MEDS ORDERED: CHOLECALCIFEROL (VITD3) 1,000UNIT=25mCg TAB PO SCH (10:00)
[2020-03-22] MEDS ORDERED: CHOLECALCIFEROL (VITD3) 2,000 UNIT CAP PO SCH (10:00)
[2020-03-22 11:19] LABS: Urine Bacteria NONE SEEN /hpf (None Seen); Urine Blood 3+ /uL (Negative); Urine Specific Gravity 1.033 (1.001-1.035); Urine WBC 1 /hpf (0 - 5)
--- NOTE | 2020-03-22 12:13 | NUR ---
DR. ROSALES AT BEDSIDE. PLAN OF CARE DISCUSSED WITH PT. NEW ORDER OBTAINED BANDAR VENOUS US R/O DVT.
--- NOTE | 2020-03-22 13:33 | NUR ---
ss consult Per consult advanced directive. Patient has been provided with advanced directive and all questions has been answered. Addendum: 03/22/20 at 1334 by Narcisa VALLADARES Amended: Links added.
[2020-03-22] MEDS: HYDROcodone-ACET 5/325MG TAB PO PRN ×2 (14:14→23:14)
[2020-03-22] MEDS: DOCUSATE SOD 100 MG CAP PO PRN (18:01)
--- NOTE | 2020-03-22 19:05 | NUR ---
Opening Shift Note Assumed care of patient from day shift RN patient awake and alert and oriented x4. No S/S of distress/SOB or pain. Instructed on POC and to call for assist PRN, safety measures in place, bed in lowest position, side rails up x2 and call light with in reach. will continue to monitor for changes Q1hr and PRN.
[2020-03-23 05:00] VITALS: BP 101/63
--- NOTE | 2020-03-23 08:00 | NUR ---
Morning note Patient resting in bed with even and unlabored respirations on room air, no distress noted. Instructed patient on POC, fall precautions and to call for assistance as needed. patient verbalized understanding. Fall precautions in place with call light within reach.
[2020-03-23 09:00] VITALS: BP 103/74
--- NOTE | 2020-03-23 09:04 | NUR ---
was at bedside - Dr. Holly Philip This RN was at bedside.
--- NOTE | 2020-03-23 09:06 | NUR ---
RE: PNA Vaccination Patient refused PNA vaccination. Patient stated "I would rather wait until I get a little better and then I will take it. I can get it from my doctor." Education provided. Patient verbalized understanding. Notified MD.
[2020-03-23] MEDS: DOCUSATE SOD 100 MG CAP PO PRN (09:32)
[2020-03-23] MEDS: DOXYCYCLINE 100 MG TAB/CAP PO SCH (09:33)
[2020-03-23] MEDS: FAMOTIDINE 20 MG TAB PO SCH (09:33)
[2020-03-23] MEDS: HYDROcodone-ACET 5/325MG TAB PO PRN (10:01)
--- NOTE | 2020-03-23 10:14 | NUR ---
Discharge Discharge education and paperwork provided to the patient per MD order. Patient verbalized understanding. Instructed patient on scheduled follow up appointment and discharge prescriptions. Patient verbalized understanding. IV removed with aseptic technique, catheter intact. Dressing applied. Patient tolerated well, no trauma to site. Telemonitor removed and returned. Patient reports having all personal belongings. Respirations even and unlabored, no distress noted. x3 incision sites are clean, dry and intact; well approximated. No drainage or redness noted. Patient to notify staff once transportation arrives.
--- NOTE | 2020-03-23 13:15 | NUR ---
Transportation arrived to hospital Patient transferred to [facility] via wheelchair for discharge. Patient reports having all personal belongings. No distress noted.
== END 2020-03-23 13:15 | disposition home or self-care (01) | DRG 194 ==
LOC: ER 12:27 → TELE 12:28 → TELE-CENTR 23:31 → TELE-EAST 23:33 → TELE-CENTR 03-22 01:10
PROVIDERS: ADMIT Nurse Practitioner Acute Care; ATTEND Family Medicine
DX: J18.9 Pneumonia, unspecified organism (principal); Z68.41 Body mass index [BMI] 40.0-44.9, adult; E66.9 Obesity, unspecified; Z91.012 Allergy to eggs; Z91.018 Allergy to other foods; J45.909 Unspecified asthma, uncomplicated; Z80.9 Family history of malignant neoplasm, unspecified; Z82.49 Family history of ischemic heart disease and other diseases of the circulatory system; R79.89 Other specified abnormal findings of blood chemistry; Z03.818 Encounter for observation for suspected exposure to other biological agents ruled out
CPT/HCPCS: 36415; 71046; 71275; 80053; 81001; 82728; 83615; 83735; 84484; 85025; 85379; 86141; 87081; 87426; 93005; 93970; 96361; 96374; 96375; G0378; J2405

== ENCOUNTER → 2020-04-18 | Outpatient (CLI) | payer BC ==
[2020-04-18 15:25] LABS: Amylase 43 U/L (25-115); Lipase 68 U/L (73-393)
== END | disposition home or self-care (01) ==
LOC: LAB 14:43
PROVIDERS: ATTEND Internal Medicine
DX: R10.9 Unspecified abdominal pain (principal)
CPT/HCPCS: 36415; 82150; 83690; 85379

== ENCOUNTER → 2020-05-21 | Outpatient (CLI) | payer BC ==
[2020-05-21 10:50] LABS: Basophils # (auto) 0 10 ^3/uL (0-0.2); Basophils % (auto) 0.6 % (0.0-2.0); Eosinophils # (auto) 0.2 10 ^3/uL (0-0.8); Eosinophils % (auto) 3.6 % (0.0-7.0); Hematocrit 42.4 % (36.0-46.0); Hemoglobin 14.5 g/dL (12.2-16.2); Lymphocytes # (auto) 1.8 10 ^3/uL (0.4-5.4); Lymphocytes % (auto) 29.8 % (10.0-50.0); Mean Corpuscular Hemoglobin 32.3 pg (28.0-32.0); Mean Corpuscular Hgb Conc. 34.1 g/dL (32.0-36.0); Mean Corpuscular Volume 94.7 fL (80.0-100.0); Monocytes # (auto) 0.4 10 ^3/uL (0-1.3); Neutrophils # (auto) 3.7 10 ^3/uL (1.6-8.6); Platelet Count (auto) 229 10^3/uL (140-450); Red Blood Cells 4.48 10^6/uL (4.0-5.20); Red Cell Distribution Width 13.7 % (11.8-14.3); White Blood Cell 6.1 10^3/uL (4.4-10.8)
[2020-05-21 12:00] LABS: Albumin 3.7 g/dL (3.4-5.0); Calcium 8.6 mg/dL (8.5-10.1); Potassium 4.1 mmol/L (3.5-5.1)
[2020-05-21 12:07] LABS: BUN/Creatinine Ratio 16.2; Bilirubin, Total 0.4 mg/dL (0.2-1.0); Total Protein 7.4 g/dL (6.4-8.2)
== END | disposition home or self-care (01) ==
LOC: LAB 10:11
PROVIDERS: ATTEND Internal Medicine
DX: G47.00 Insomnia, unspecified (principal); J45.909 Unspecified asthma, uncomplicated; R50.9 Fever, unspecified
CPT/HCPCS: 36415; 80053; 80061; 82306; 82607; 83036; 84425; 84443; 85025

== ENCOUNTER → 2020-07-10 | Outpatient (CLI) | payer BC | END | disposition home or self-care (01) | LOC: LAB 13:18 | PROVIDERS: ATTEND Internal Medicine | DX: K21.9 Gastro-esophageal reflux disease without esophagitis (principal); R10.816 Epigastric abdominal tenderness | CPT/HCPCS: 36415; 82565; 84520 ==

== ENCOUNTER 2020-07-25 07:33 | Emergency (ER) | payer BC ==
[~2020-07-25] VITALS: Ht 154.9 cm; Wt 106.6 kg
[2020-07-25 07:53] VITALS: BP 144/81
[2020-07-25] MEDS ORDERED: KETOROLAC TROMETH 60MG/2ML VIAL IM ONE (09:45)
== END 2020-07-25 10:12 | disposition home or self-care (01) ==
LOC: ER 07:33
DX: R51.9 Headache, unspecified (principal)
CPT/HCPCS: 70450; 81025; 99284; J1885

== ENCOUNTER → 2020-08-08 | Outpatient (CLI) | payer BC ==
[2020-08-08 11:22] LABS: Basophils # (auto) 0.1 10 ^3/uL (0-0.2); Basophils % (auto) 0.7 % (0.0-2.0); Eosinophils # (auto) 0.3 10 ^3/uL (0-0.8); Hematocrit 41.3 % (36.0-46.0); Hemoglobin 14.5 g/dL (12.2-16.2); Lymphocytes # (auto) 1.9 10 ^3/uL (0.4-5.4); Lymphocytes % (auto) 19.9 % (10.0-50.0); Mean Corpuscular Hemoglobin 33.6 pg (28.0-32.0); Mean Corpuscular Hgb Conc. 35.1 g/dL (32.0-36.0); Mean Corpuscular Volume 95.7 fL (80.0-100.0); Monocytes # (auto) 0.6 10 ^3/uL (0-1.3); Monocytes % (auto) 6.4 % (0.0-12.0); Neutrophils # (auto) 6.7 10 ^3/uL (1.6-8.6); Platelet Count (auto) 234 10^3/uL (140-450); Red Blood Cells 4.31 10^6/uL (4.0-5.20); Red Cell Distribution Width 13.4 % (11.8-14.3); White Blood Cell 9.5 10^3/uL (4.4-10.8)
[2020-08-08 12:03] LABS: INR 0.9 (0.9-1.15); Partial Thromboplastin Time 25.4 sec (23.0-31.2)
== END | disposition home or self-care (01) ==
LOC: LAB 11:00
PROVIDERS: ATTEND Internal Medicine
DX: K92.2 Gastrointestinal hemorrhage, unspecified (principal)
CPT/HCPCS: 36415; 85025; 85610; 85730

== ENCOUNTER 2020-08-23 11:19 | Emergency (ER) | payer BC ==
[~2020-08-23] VITALS: Ht 154.9 cm; Wt 104.3 kg
[2020-08-23 11:57] LABS: Basophils # (auto) 0.1 10 ^3/uL (0-0.2); Basophils % (auto) 0.8 % (0.0-2.0); Eosinophils # (auto) 0.2 10 ^3/uL (0-0.8); Eosinophils % (auto) 2.1 % (0.0-7.0); Hematocrit 47.5 % (36.0-46.0); Hemoglobin 16.3 g/dL (12.2-16.2); Lymphocytes # (auto) 2.1 10 ^3/uL (0.4-5.4); Lymphocytes % (auto) 25.2 % (10.0-50.0); Mean Corpuscular Hemoglobin 32.7 pg (28.0-32.0); Mean Corpuscular Hgb Conc. 34.2 g/dL (32.0-36.0); Mean Corpuscular Volume 95.5 fL (80.0-100.0); Monocytes # (auto) 0.4 10 ^3/uL (0-1.3); Monocytes % (auto) 4.6 % (0.0-12.0); Neutrophils # (auto) 5.5 10 ^3/uL (1.6-8.6); Neutrophils % (auto) 67.3 % (37.0-80.0); Nucleated Red Blood Cells % 0.1 %; Platelet Count (auto) 282 10^3/uL (140-450); Red Blood Cells 4.97 10^6/uL (4.0-5.20); Red Cell Distribution Width 13.5 % (11.8-14.3); White Blood Cell 8.2 10^3/uL (4.4-10.8)
[2020-08-23] MEDS ORDERED: HYDROcodone-ACET 10/325MG TAB PO ONE (12:30)
[2020-08-23 12:36] LABS: Alanine Aminotransferase 40 U/L (13-56); Albumin 4.4 g/dL (3.4-5.0); Anion Gap 8 (5-15); Blood Urea Nitrogen 15 mg/dL (7-18); Calcium 9.6 mg/dL (8.5-10.1); Carbon Dioxide 25 mmol/L (21-32); Chloride 104 mmol/L (98-107); Glucose 117 mg/dL (74-106); Magnesium 2.6 mg/dL (1.6-2.6); Potassium 3.6 mmol/L (3.5-5.1); Sodium 137 mmol/L (136-145)
[2020-08-23 12:40] LABS: Alkaline Phosphatase 88 U/L (45-117); Aspartate Aminotransferase 26 U/L (15-37); BUN/Creatinine Ratio 19.7; Bilirubin, Total 0.4 mg/dL (0.2-1.0); GFR African American 108 mL/min; GFR Non-African American 89 mL/min; Total Protein 8.5 g/dL (6.4-8.2)
[2020-08-23 13:21] VITALS: BP 126/68
[2020-08-23 13:41] LABS: INR 1.04 (0.9-1.15); Partial Thromboplastin Time 28.8 sec (23.0-31.2)
== END 2020-08-23 14:46 | disposition home or self-care (01) ==
LOC: ER 11:19
DX: R07.89 Other chest pain (principal)
CPT/HCPCS: 36415; 71045; 80053; 83735; 84484; 85025; 85610; 85730; 93005

== ENCOUNTER 2020-09-03 20:23 | Emergency (ER) | payer BC ==
[~2020-09-03] VITALS: Ht 154.9 cm; Wt 102.1 kg
[2020-09-03] MEDS ORDERED: LORazepam 0.5 MG TAB PO ONE (21:45)
[2020-09-03 22:52] LABS: Basophils # (auto) 0.1 10 ^3/uL (0-0.2); Basophils % (auto) 0.6 % (0.0-2.0); Eosinophils # (auto) 0.3 10 ^3/uL (0-0.8); Eosinophils % (auto) 4.1 % (0.0-7.0); Hematocrit 40.7 % (36.0-46.0); Hemoglobin 14.4 g/dL (12.2-16.2); Lymphocytes # (auto) 2.6 10 ^3/uL (0.4-5.4); Lymphocytes % (auto) 31.5 % (10.0-50.0); Mean Corpuscular Hemoglobin 33.8 pg (28.0-32.0); Mean Corpuscular Hgb Conc. 35.4 g/dL (32.0-36.0); Mean Corpuscular Volume 95.4 fL (80.0-100.0); Monocytes # (auto) 0.6 10 ^3/uL (0-1.3); Monocytes % (auto) 6.8 % (0.0-12.0); Neutrophils # (auto) 4.8 10 ^3/uL (1.6-8.6); Nucleated Red Blood Cells % 0.1 %; Platelet Count (auto) 218 10^3/uL (140-450); Red Blood Cells 4.27 10^6/uL (4.0-5.20); Red Cell Distribution Width 13.3 % (11.8-14.3); White Blood Cell 8.4 10^3/uL (4.4-10.8)
[2020-09-03 23:10] LABS: Chloride 105 mmol/L (98-107); Potassium 3.4 mmol/L (3.5-5.1); Sodium 138 mmol/L (136-145)
[2020-09-03 23:15] LABS: INR 0.95 (0.9-1.15); Partial Thromboplastin Time 26.6 sec (23.0-31.2)
[2020-09-03 23:19] LABS: Alanine Aminotransferase 27 U/L (13-56); Albumin 3.5 g/dL (3.4-5.0); Alkaline Phosphatase 72 U/L (45-117); Anion Gap 7 (5-15); Aspartate Aminotransferase 19 U/L (15-37); BUN/Creatinine Ratio 16.3; Bilirubin, Total 0.3 mg/dL (0.2-1.0); Blood Urea Nitrogen 14 mg/dL (7-18); Calcium 8.4 mg/dL (8.5-10.1); Carbon Dioxide 26 mmol/L (21-32); GFR African American 94 mL/min; GFR Non-African American 77 mL/min; Glucose 121 mg/dL (74-106)
[2020-09-03 23:29] VITALS: BP 133/74
[2020-09-04] MEDS ORDERED: ONDANSETRON HCL 4 MG/2 ML VIAL IV ONE (00:30)
== END 2020-09-04 00:55 | disposition home or self-care (01) ==
LOC: ER 20:25
DX: R07.89 Other chest pain (principal); F41.9 Anxiety disorder, unspecified
CPT/HCPCS: 36415; 71045; 80053; 81025; 83880; 84484; 85025; 85610; 85730; 93005; 96374; 99285; J2405

== ENCOUNTER 2020-09-14 19:51 | Emergency (ER) | payer BC ==
[~2020-09-14] VITALS: Ht 154.9 cm; Wt 102.1 kg
[2020-09-14 19:52] VITALS: BP 125/79
[2020-09-14] MEDS ORDERED: KETOROLAC TROMETH 60MG/2ML VIAL IM ONE (20:45)
== END 2020-09-14 21:24 | disposition home or self-care (01) ==
LOC: ER 19:51
DX: R51.9 Headache, unspecified (principal)
CPT/HCPCS: 96372; 99283; J1885

== ENCOUNTER 2020-09-28 09:09 | Emergency (ER) | payer BC ==
[~2020-09-28] VITALS: Ht 154.9 cm; Wt 102.1 kg
[2020-09-28 09:27] VITALS: BP 137/88
[2020-09-28] MEDS ORDERED: KETOROLAC TROMETH 60MG/2ML VIAL IM ONE (10:00)
[2020-09-28] MEDS ORDERED: ONDANSETRON ODT 4 MG TAB PO ONE (10:00)
== END 2020-09-28 10:51 | disposition home or self-care (01) ==
LOC: ER 09:09
DX: G43.909 Migraine, unspecified, not intractable, without status migrainosus (principal); E23.6 Other disorders of pituitary gland; F41.9 Anxiety disorder, unspecified
CPT/HCPCS: 70450; 96372; 99284; J1885; Q0162

== ENCOUNTER → 2020-11-16 | Outpatient (CLI) | payer BC | END | disposition home or self-care (01) | LOC: LAB 09:00 | PROVIDERS: ATTEND Podiatrist Foot & Ankle Surgery | DX: B07.0 Plantar wart (principal) ==

== ENCOUNTER 2020-12-22 12:13 | Emergency (ER) | payer BC ==
[~2020-12-22] VITALS: Ht 154.9 cm; Wt 104.3 kg
[2020-12-22 14:45] VITALS: BP 133/76
[2020-12-22] MEDS ORDERED: cefTRIAXone SOD 1,000 MG VL IM ONE (15:45)
[2020-12-22] MEDS ORDERED: KETOROLAC TROMETH 60MG/2ML VIAL IM ONE (15:45)
[2020-12-22] MEDS ORDERED: LIDOCAINE 1% HCL (LOCAL ANESTH.) INJ 20ML MDV IJ ONE (15:45)
== END 2020-12-22 16:16 | disposition home or self-care (01) ==
LOC: ER 12:13
DX: J20.9 Acute bronchitis, unspecified (principal); J03.90 Acute tonsillitis, unspecified; F41.9 Anxiety disorder, unspecified; Z20.822 Contact with and (suspected) exposure to COVID-19
CPT/HCPCS: 36415; 71045; 87426; 96372; 99284; J0696; J1885; J2001

== ENCOUNTER → 2021-01-04 | Outpatient (CLI) | payer BC ==
[2021-01-04 10:48] LABS: Basophils # (auto) 0 10 ^3/uL (0-0.2); Basophils % (auto) 0.6 % (0.0-2.0); Eosinophils # (auto) 0.2 10 ^3/uL (0-0.8); Eosinophils % (auto) 2.4 % (0.0-7.0); Hematocrit 44.9 % (36.0-46.0); Hemoglobin 15.4 g/dL (12.2-16.2); Lymphocytes # (auto) 2.3 10 ^3/uL (0.4-5.4); Lymphocytes % (auto) 27.3 % (10.0-50.0); Mean Corpuscular Hemoglobin 32.7 pg (28.0-32.0); Mean Corpuscular Hgb Conc. 34.2 g/dL (32.0-36.0); Mean Corpuscular Volume 95.6 fL (80.0-100.0); Monocytes # (auto) 0.6 10 ^3/uL (0-1.3); Monocytes % (auto) 7.1 % (0.0-12.0); Neutrophils # (auto) 5.2 10 ^3/uL (1.6-8.6); Neutrophils % (auto) 62.6 % (37.0-80.0); Red Cell Distribution Width 13.4 % (11.8-14.3); White Blood Cell 8.3 10^3/uL (4.4-10.8)
[2021-01-04 11:20] LABS: Potassium 4.3 mmol/L (3.5-5.1)
[2021-01-04 11:27] LABS: Albumin 3.7 g/dL (3.4-5.0); BUN/Creatinine Ratio 22.5; Bilirubin, Total 0.7 mg/dL (0.2-1.0); Calcium 9.1 mg/dL (8.5-10.1); Total Protein 7.5 g/dL (6.4-8.2)
[2021-01-04 11:30] LABS: Ferritin 100.5 ng/mL (10-322); Free T4 (Free Thyroxine) 1.29 ng/dL (0.89-1.76)
[2021-01-04 11:31] LABS: Free T3 3.1 pg/mL (2.3-4.2)
== END | disposition home or self-care (01) ==
LOC: LAB 10:27
PROVIDERS: ATTEND Internal Medicine
DX: I10 Essential (primary) hypertension (principal); F41.9 Anxiety disorder, unspecified; J31.2 Chronic pharyngitis; R51.9 Headache, unspecified; G93.2 Benign intracranial hypertension; J45.909 Unspecified asthma, uncomplicated; N91.2 Amenorrhea, unspecified
CPT/HCPCS: 36415; 80053; 80061; 82728; 84439; 84443; 84481; 85025

== ENCOUNTER → 2021-04-03 | Outpatient (CLI) | payer BC ==
[2021-04-03 11:30] LABS: Basophils # (auto) 0.1 10 ^3/uL (0-0.2); Basophils % (auto) 0.8 % (0.0-2.0); Eosinophils # (auto) 0.3 10 ^3/uL (0-0.8); Eosinophils % (auto) 4.2 % (0.0-7.0); Hemoglobin 14.5 g/dL (12.2-16.2); Lymphocytes # (auto) 1.9 10 ^3/uL (0.4-5.4); Lymphocytes % (auto) 27.3 % (10.0-50.0); Mean Corpuscular Hemoglobin 32.3 pg (28.0-32.0); Mean Corpuscular Hgb Conc. 33.8 g/dL (32.0-36.0); Mean Corpuscular Volume 95.6 fL (80.0-100.0); Monocytes # (auto) 0.4 10 ^3/uL (0-1.3); Neutrophils # (auto) 4.2 10 ^3/uL (1.6-8.6); Neutrophils % (auto) 61.7 % (37.0-80.0); Nucleated Red Blood Cells % 0.1 %; Red Cell Distribution Width 13.4 % (11.8-14.3); White Blood Cell 6.8 10^3/uL (4.4-10.8)
[2021-04-03 11:48] LABS: INR 0.96 (0.9-1.15); Partial Thromboplastin Time 24.8 sec (23.6-33.0)
[2021-04-03 12:26] LABS: Albumin 3.6 g/dL (3.4-5.0); Calcium 8.7 mg/dL (8.5-10.1); Potassium 4.4 mmol/L (3.5-5.1)
[2021-04-03 12:31] LABS: BUN/Creatinine Ratio 24.1; Bilirubin, Total 0.4 mg/dL (0.2-1.0); Total Protein 7.2 g/dL (6.4-8.2)
== END | disposition home or self-care (01) ==
LOC: LAB 11:01
PROVIDERS: ATTEND Internal Medicine
DX: Z01.812 Encounter for preprocedural laboratory examination (principal); Z13.31 Encounter for screening for depression; I10 Essential (primary) hypertension; K57.90 Diverticulosis of intestine, part unspecified, without perforation or abscess without bleeding; E66.01 Morbid (severe) obesity due to excess calories; Z68.41 Body mass index [BMI] 40.0-44.9, adult
CPT/HCPCS: 36415; 80053; 84702; 85025; 85610; 85730; 87086

== ENCOUNTER 2021-05-13 07:37 | Inpatient (IN) | payer BC ==
[~2021-05-13] VITALS: Ht 154.9 cm; Wt 101.3 kg
[2021-05-13 08:56] LABS: Urine Bacteria FEW /hpf (None Seen); Urine Blood 2+ /uL (Negative); Urine Hyaline Cast FEW /lpf (0 - 2); Urine Mucus FEW (None Seen); Urine Specific Gravity 1.025 (1.001-1.035); Urine WBC 33 /hpf (0 - 5)
[2021-05-13 09:11] LABS: Basophils # (auto) 0 10 ^3/uL (0-0.2); Basophils % (auto) 0.5 % (0.0-2.0); Eosinophils # (auto) 0.2 10 ^3/uL (0-0.8); Eosinophils % (auto) 3.8 % (0.0-7.0); Hematocrit 45.4 % (36.0-46.0); Lymphocytes # (auto) 1.4 10 ^3/uL (0.4-5.4); Lymphocytes % (auto) 25.7 % (10.0-50.0); Mean Corpuscular Hemoglobin 31.4 pg (28.0-32.0); Mean Corpuscular Hgb Conc. 33.1 g/dL (32.0-36.0); Mean Corpuscular Volume 94.8 fL (80.0-100.0); Monocytes # (auto) 0.5 10 ^3/uL (0-1.3); Monocytes % (auto) 8.8 % (0.0-12.0); Neutrophils # (auto) 3.4 10 ^3/uL (1.6-8.6); Neutrophils % (auto) 61.2 % (37.0-80.0); Nucleated Red Blood Cells % 0.2 %; Red Blood Cells 4.79 10^6/uL (4.0-5.20); Red Cell Distribution Width 14.2 % (11.8-14.3); White Blood Cell 5.6 10^3/uL (4.4-10.8)
[2021-05-13 09:23] LABS: Albumin 3.7 g/dL (3.4-5.0); Calcium 8.6 mg/dL (8.5-10.1)
[2021-05-13 09:28] LABS: BUN/Creatinine Ratio 14.5; Bilirubin, Total 0.6 mg/dL (0.2-1.0)
[2021-05-13] MEDS ORDERED: SODIUM CHLORIDE 0.9% 500 ML IV ONE (13:15)
[2021-05-13] MEDS ORDERED: ONDANSETRON HCL 4 MG/2 ML VIAL IV ONE (13:15)
[2021-05-13] MEDS ORDERED: SODIUM CHLORIDE 0.9% 2,800 ML IV ONE (13:15)
[2021-05-13] MEDS ORDERED: metroNIDAZOLE 500MG/100ML 100 ML IV ONE (13:15)
[2021-05-13] MEDS ORDERED: HYDROmorphone HCL 2 MG/ML VL IV ONE (13:15)
[2021-05-13] MEDS ORDERED: MORPHINE SULFATE INJECTION 2 MG/ML SYRG IV PRN ×2 (15:00→16:00)
[2021-05-13] MEDS ORDERED: NITROGLYCERIN 0.4 MG SL TAB SL PRN ×2 (15:00→16:00)
[2021-05-13] MEDS ORDERED: ALBUTEROL SULF 2.5 MG/0.5ML(0.5%) NEB SOLN NEB ONE (16:00)
[2021-05-13] MEDS ORDERED: ACETAMINOPHEN 325 MG TAB PO PRN (16:00)
[2021-05-13] MEDS ORDERED: ALBUTEROL SULF 2.5 MG/0.5ML(0.5%) NEB SOLN NEB PRN (16:00)
[2021-05-13] MEDS ORDERED: PANTOPRAZOLE 40 MG/10 ML VIAL INJ IV ONE (16:00)
[2021-05-13] MEDS ORDERED: cefTRIAXone 1GM/50ML D5W 50 ML IV ONE (16:00)
[2021-05-13] MEDS ORDERED: DOCUSATE SOD 100 MG CAP PO PRN (16:00)
[2021-05-13] MEDS ORDERED: LORazepam 0.5 MG TAB PO PRN (16:00)
[2021-05-13 16:35] LABS: Amphetamine Screen, Urine NEGATIVE (NEGATIVE); Barbiturate Scree,Urine NEGATIVE (NEGATIVE); Benzodiazephine Screen, Urine NEGATIVE (NEGATIVE); Cannabinoid Screen, Urine NEGATIVE (NEGATIVE); Cocaine Screen, Urine NEGATIVE (NEGATIVE); Opiate Scree,Urine NEGATIVE (NEGATIVE); Phencyclidine Screen, Urine NEGATIVE (NEGATIVE)
[2021-05-13 16:42] LABS: Cholesterol 153 mg/dL (< 200)
[2021-05-13 16:45] LABS: HDL Cholesterol 35 mg/dL (40-59); LDL Cholesterol 98 mg/dL (< 100); Triglycerides 119 mg/dL (< 150)
[2021-05-13] MEDS: SODIUM CHLORIDE 0.9% 1,000 ML IV SCH (17:45)
[2021-05-13] MEDS: HYDROcodone-ACET 5/325MG TAB PO PRN (20:58)
[2021-05-13 21:00] VITALS: BP 111/75
[2021-05-13] MEDS ORDERED: ATORVASTATIN 20 MG TAB PO SCH (22:00)
[2021-05-14] MEDS: HYDROcodone-ACET 5/325MG TAB PO PRN ×3 (03:29→21:42)
[2021-05-14 05:00] VITALS: BP 100/63
[2021-05-14 06:06] LABS: Basophils # (auto) 0 10 ^3/uL (0-0.2); Eosinophils # (auto) 0.3 10 ^3/uL (0-0.8); Eosinophils % (auto) 5.9 % (0.0-7.0); Hematocrit 38.1 % (36.0-46.0); Lymphocytes # (auto) 1.4 10 ^3/uL (0.4-5.4); Lymphocytes % (auto) 32.7 % (10.0-50.0); Mean Corpuscular Hemoglobin 32.3 pg (28.0-32.0); Mean Corpuscular Hgb Conc. 34.1 g/dL (32.0-36.0); Mean Corpuscular Volume 94.7 fL (80.0-100.0); Monocytes # (auto) 0.5 10 ^3/uL (0-1.3); Monocytes % (auto) 10.5 % (0.0-12.0); Neutrophils # (auto) 2.1 10 ^3/uL (1.6-8.6); Neutrophils % (auto) 49.9 % (37.0-80.0); Nucleated Red Blood Cells % 0.1 %; Red Blood Cells 4.03 10^6/uL (4.0-5.20); Red Cell Distribution Width 14.4 % (11.8-14.3); White Blood Cell 4.3 10^3/uL (4.4-10.8)
[2021-05-14 06:22] LABS: INR 1.13 (0.9-1.15); Partial Thromboplastin Time 26.5 sec (23.6-33.0)
[2021-05-14 06:25] LABS: Albumin 2.9 g/dL (3.4-5.0); Calcium 7.7 mg/dL (8.5-10.1); Magnesium 2.6 mg/dL (1.6-2.6); Potassium 3.2 mmol/L (3.5-5.1)
[2021-05-14 06:32] LABS: BUN/Creatinine Ratio 16.1; Bilirubin, Total 0.4 mg/dL (0.2-1.0); Phosphorus 3.1 mg/dL (2.5-4.90); Total Protein 5.8 g/dL (6.4-8.2); Uric Acid 7.9 mg/dL (2.6-6.0)
[2021-05-14 07:30] VITALS: BP 100/65
[2021-05-14] MEDS: PANTOPRAZOLE 40 MG/10 ML VIAL INJ IV SCH (09:39)
[2021-05-14] MEDS: cefTRIAXone 1GM/50ML D5W 50 ML IV SCH (09:39)
[2021-05-14] MEDS: SODIUM CHLORIDE 0.9% 1,000 ML IV SCH (09:42)
[2021-05-14] MEDS ORDERED: ASPirin 81 mg TAB PO SCH (10:00)
[2021-05-14] MEDS: ALUM & MAG HYDROX-SIMETH LIQ(MAALOX) 30 ML PO PRN (11:46)
[2021-05-14 13:21] VITALS: BP 104/60
[2021-05-14] MEDS ORDERED: GASTROGRAFIN 120 ML SOL ONE (13:45)
[2021-05-14] MEDS ORDERED: EZ-GAS II GRANULES (RADIOLOGY USE) PO ONE (13:46)
[2021-05-14] MEDS: METOCLOPRAMIDE HCL 5MG/ml INJ 2ml VIAL IV PRN ×2 (14:47→18:47)
[2021-05-14 17:34] VITALS: BP 104/67
[2021-05-14] MEDS ORDERED: ESOM40CA83 PO (17:59)
[2021-05-14] MEDS ORDERED: SUCR1TAB PO (17:59)
[2021-05-14] MEDS: LACTULOSE 20Gm/30ML SOLN PO SCH (21:41)
[2021-05-14 22:00] VITALS: BP 116/61
[2021-05-15] MEDS: SODIUM CHLORIDE 0.9% 1,000 ML IV SCH ×2 (01:20→03:34)
[2021-05-15 05:25] VITALS: BP 122/71
[2021-05-15 07:25] LABS: BUN/Creatinine Ratio 9.4; Calcium 8.2 mg/dL (8.5-10.1); Potassium 3.3 mmol/L (3.5-5.1)
[2021-05-15] MEDS: cefTRIAXone 1GM/50ML D5W 50 ML IV SCH (09:16)
[2021-05-15] MEDS: PANTOPRAZOLE 40 MG/10 ML VIAL INJ IV SCH ×2 (09:16→21:32)
[2021-05-15 09:17] VITALS: BP 104/56
[2021-05-15] MEDS: METOCLOPRAMIDE HCL 5MG/ml INJ 2ml VIAL IV PRN ×3 (09:39→20:35)
[2021-05-15] MEDS: LACTULOSE 20Gm/30ML SOLN PO SCH ×2 (10:00→21:39)
[2021-05-15] MEDS ORDERED: GASTROGRAFIN 120 ML SOL ONE (10:22)
[2021-05-15] MEDS ORDERED: EZ-GAS II GRANULES (RADIOLOGY USE) PO ONE (10:23)
[2021-05-15 13:00] VITALS: BP 119/72
[2021-05-15] MEDS ORDERED: POTASSIUM CHL 20 Meq TABLET PO ONE (14:45)
[2021-05-15 17:00] VITALS: BP 114/72
[2021-05-15] MEDS: HYDROcodone-ACET 5/325MG TAB PO PRN (20:34)
[2021-05-15 22:00] VITALS: BP 104/59
[2021-05-16 05:00] VITALS: BP 112/70
[2021-05-16] MEDS: METOCLOPRAMIDE HCL 5MG/ml INJ 2ml VIAL IV PRN ×2 (07:58→14:46)
[2021-05-16] MEDS: ALUM & MAG HYDROX-SIMETH LIQ(MAALOX) 30 ML PO PRN (07:58)
[2021-05-16 09:00] VITALS: BP 124/80
[2021-05-16] MEDS: cefTRIAXone 1GM/50ML D5W 50 ML IV SCH (09:00)
[2021-05-16] MEDS: PANTOPRAZOLE 40 MG/10 ML VIAL INJ IV SCH (10:00)
[2021-05-16] MEDS: LACTULOSE 20Gm/30ML SOLN PO SCH (10:00)
[2021-05-16 13:00] VITALS: BP 119/89
[2021-05-16] MEDS ORDERED: ONDA-144 PO (13:32)
[2021-05-16] MEDS ORDERED: OMEP20TA PO (13:32)
== END 2021-05-16 15:00 | disposition home or self-care (01) | DRG 392 ==
LOC: ER 07:37 → OVERFLOW 14:59 → WEST WING 21:45
PROVIDERS: ADMIT Hospitalist; ATTEND Internal Medicine
DX: K21.9 Gastro-esophageal reflux disease without esophagitis (principal); Z68.41 Body mass index [BMI] 40.0-44.9, adult; K57.30 Diverticulosis of large intestine without perforation or abscess without bleeding; K75.81 Nonalcoholic steatohepatitis (NASH); R13.10 Dysphagia, unspecified; K59.03 Drug induced constipation; E87.6 Hypokalemia; E55.9 Vitamin D deficiency, unspecified; E78.5 Hyperlipidemia, unspecified; Z20.822 Contact with and (suspected) exposure to COVID-19; J45.909 Unspecified asthma, uncomplicated; F41.9 Anxiety disorder, unspecified; E66.01 Morbid (severe) obesity due to excess calories; T40.2X5A Adverse effect of other opioids, initial encounter; Z82.49 Family history of ischemic heart disease and other diseases of the circulatory system; Z98.84 Bariatric surgery status; Y92.89 Other specified places as the place of occurrence of the external cause; Z80.1 Family history of malignant neoplasm of trachea, bronchus and lung; Z91.012 Allergy to eggs; Z91.018 Allergy to other foods; Z83.3 Family history of diabetes mellitus; Z90.49 Acquired absence of other specified parts of digestive tract
CPT/HCPCS: 36415; 71045; 74176; 74245; 80048; 80053; 80061; 80307; 81001; 82306; 83036; 83690; 83735; 83880; 84100; 84443; 84484; 84550; 85025; 85379; 85610; 85730; 87040; 87086; 87426; 93005; 96361; 96365; 96367; 96375; C9113; G0378; J0696; J2405; J3490

== ENCOUNTER → 2021-06-05 | Outpatient (CLI) | payer BC ==
[~2021-06-05] MED LIST changes: -ACETAMINOPHEN 325 MG TAB PO ONE; +OMEP20TA PO; +ONDA-144 PO; -SODIUM CHLORIDE 0.9% 2,000 ML IV ONE
[2021-06-05 08:52] LABS: Hematocrit 43.3 % (36.0-46.0); Hemoglobin 14.2 g/dL (12.2-16.2); Mean Corpuscular Hemoglobin 31.5 pg (28.0-32.0); Mean Corpuscular Hgb Conc. 32.9 g/dL (32.0-36.0); Mean Corpuscular Volume 95.7 fL (80.0-100.0); Red Blood Cells 4.53 10^6/uL (4.0-5.20); White Blood Cell 7.7 10^3/uL (4.4-10.8)
[2021-06-05 08:59] LABS: Urine Bacteria FEW /hpf (None Seen); Urine Blood 1+ /uL (Negative); Urine Mucus FEW (None Seen); Urine Specific Gravity 1.023 (1.001-1.035); Urine WBC 28 /hpf (0 - 5)
[2021-06-05 09:01] LABS: Basophils % (manual) 0 (0.0-2.0); Blast Cells 0; Metamyelocytes % 0; Myelocytes % 0; Promyelocytes % 0; Reactive Lymphocytes 0
[2021-06-05 09:17] LABS: % Iron Saturation 28.8 % (15-50); Albumin 3.4 g/dL (3.4-5.0); Calcium 8.5 mg/dL (8.5-10.1); Potassium 3.3 mmol/L (3.5-5.1)
[2021-06-05 09:21] LABS: BUN/Creatinine Ratio 16.2; Bilirubin, Total 0.6 mg/dL (0.2-1.0); Total Protein 6.9 g/dL (6.4-8.2)
[2021-06-05 12:59] LABS: Band Neutrophils % (manual) 3; Eosinophils % (manual) 3 (0-7); Lymphocytes % (manual) 28 (10.0-50.0); Monocytes % (manual) 7 (0-12)
== END | disposition home or self-care (01) ==
LOC: LAB 08:17
PROVIDERS: ATTEND Internal Medicine
DX: Z13.31 Encounter for screening for depression (principal); J30.9 Allergic rhinitis, unspecified; R10.13 Epigastric pain; I10 Essential (primary) hypertension; Z68.37 Body mass index [BMI] 37.0-37.9, adult
CPT/HCPCS: 36415; 80053; 81001; 82306; 82607; 83540; 83550; 85007; 85027; 86677

== ENCOUNTER 2022-04-06 17:52 | Emergency (ER) | payer BC, MEDICAID ==
[~2022-04-06] VITALS: Ht 154.9 cm; Wt 61.3 kg
[2022-04-06 18:30] VITALS: BP 117/75
[2022-04-06 20:14] LABS: Basophils # (auto) 0.1 10 ^3/uL (0-0.2); Basophils % (auto) 0.9 % (0.0-2.0); Eosinophils # (auto) 0 10 ^3/uL (0-0.8); Hemoglobin 14.2 g/dL (12.2-16.2); Lymphocytes % (auto) 11.5 % (10.0-50.0); Mean Corpuscular Hgb Conc. 33.2 g/dL (32.0-36.0); Mean Corpuscular Volume 99.5 fL (80.0-100.0); Monocytes # (auto) 0.6 10 ^3/uL (0-1.3); Monocytes % (auto) 7.1 % (0.0-12.0); Neutrophils # (auto) 7.3 10 ^3/uL (1.6-8.6); Neutrophils % (auto) 80.5 % (37.0-80.0); Nucleated Red Blood Cells % 0.1 %; Red Blood Cells 4.32 10^6/uL (4.0-5.20); Red Cell Distribution Width 13.6 % (11.8-14.3); White Blood Cell 9.1 10^3/uL (4.4-10.8)
[2022-04-06 21:04] LABS: Albumin 4.2 g/dL (3.4-5.0); Anion Gap 8 (5-15); Blood Urea Nitrogen 13 mg/dL (7-18); Calcium 8.8 mg/dL (8.5-10.1); Carbon Dioxide 26 mmol/L (21-32); Chloride 110 mmol/L (98-107); Glucose 91 mg/dL (74-106); Lipase 67 U/L (73-393); Potassium 3.8 mmol/L (3.5-5.1); Sodium 144 mmol/L (136-145)
[2022-04-06 21:07] LABS: Alanine Aminotransferase 22 U/L (13-56); BUN/Creatinine Ratio 18.3; GFR African American 116 mL/min; GFR Non-African American 95 mL/min
[2022-04-06 21:09] LABS: Alkaline Phosphatase 59 U/L (45-117); Aspartate Aminotransferase 15 U/L (15-37); Bilirubin, Total 0.6 mg/dL (0.2-1.0); Total Protein 7.2 g/dL (6.4-8.2)
== END 2022-04-06 19:55 | disposition left against medical advice (07) ==
LOC: ER 17:52 → EEVIPCON 17:52 → ER 19:55
DX: K59.00 Constipation, unspecified (principal); Z53.21 Procedure and treatment not carried out due to patient leaving prior to being seen by health care provider
CPT/HCPCS: 36415; 74018; 80053; 83690; 85025

== ENCOUNTER 2022-06-17 13:05 | Emergency (ER) | payer MEDICAID ==
[~2022-06-17] VITALS: Ht 154.9 cm; Wt 62.0 kg
[2022-06-17 13:24] VITALS: BP 107/60
[2022-06-17] MEDS ORDERED: ACETAMINOPHEN 500 MG TAB PO ONE (15:00)
== END 2022-06-17 15:53 | disposition home or self-care (01) ==
LOC: ER 13:05
DX: S00.80XA Unspecified superficial injury of other part of head, initial encounter (principal); F41.9 Anxiety disorder, unspecified; J45.909 Unspecified asthma, uncomplicated; K21.9 Gastro-esophageal reflux disease without esophagitis; Z91.018 Allergy to other foods; Z98.890 Other specified postprocedural states; W22.8XXA Striking against or struck by other objects, initial encounter; Y93.89 Activity, other specified; Y92.89 Other specified places as the place of occurrence of the external cause; Y99.8 Other external cause status

== ENCOUNTER 2023-01-11 09:14 | Emergency (ER) | payer MEDICAID, OTHER ==
[~2023-01-11] VITALS: Ht 154.9 cm; Wt 59.8 kg
[2023-01-11 09:40] VITALS: BP 107/68; PULSE 77; RESP 18; TEMP 98.1; O2SAT 98
[2023-01-11] MEDS ORDERED: BACL10TA PO (12:08)
[2023-01-11] MEDS ORDERED: HYDR-4902 PO (12:08)
[2023-01-11] MEDS ORDERED: HYDROcodone-ACET 5/325MG TAB PO ONE (12:15)
== END 2023-01-11 12:05 | disposition home or self-care (01) ==
LOC: ER 09:14
DX: S13.8XXA Sprain of joints and ligaments of other parts of neck, initial encounter (principal); S43.492A Other sprain of left shoulder joint, initial encounter; S09.8XXA Other specified injuries of head, initial encounter; F41.9 Anxiety disorder, unspecified; J45.909 Unspecified asthma, uncomplicated; K21.9 Gastro-esophageal reflux disease without esophagitis; Z98.890 Other specified postprocedural states; Z79.899 Other long term (current) drug therapy; Z91.012 Allergy to eggs; Z91.018 Allergy to other foods; V89.2XXA Person injured in unspecified motor-vehicle accident, traffic, initial encounter; Y93.89 Activity, other specified; Y92.89 Other specified places as the place of occurrence of the external cause; Y99.8 Other external cause status
CPT/HCPCS: 70450; 72125; 73030

== ENCOUNTER 2023-02-05 19:48 | Inpatient (IN) | payer MEDICAID, OTHER ==
[~2023-02-05] VITALS: Ht 154.9 cm; Wt 60.6 kg
[~2023-02-05 19:48] MED LIST changes: +BACL10TA PO; +HYDR-4902 PO
[2023-02-05 20:27] VITALS: O2SAT 96
[2023-02-05 20:49] VITALS: TEMP 98.4
[2023-02-05] MEDS ORDERED: MORPHINE SULFATE INJ 2 MG/ml SYRG IV ONE (21:15)
[2023-02-05] MEDS ORDERED: ONDANSETRON HCL 4 MG/2 ML VIAL IV ONE (21:15)
[2023-02-05 21:27] LABS: Basophils # (auto) 0 10 ^3/uL (0-0.2); Basophils % (auto) 0.8 % (0.0-2.0); Eosinophils # (auto) 0.2 10 ^3/uL (0-0.8); Eosinophils % (auto) 3.1 % (0.0-7.0); Hematocrit 36.9 % (36.0-46.0); Hemoglobin 12.4 g/dL (12.2-16.2); Lymphocytes % (auto) 41.1 % (10.0-50.0); Mean Corpuscular Hemoglobin 32.6 pg (28.0-32.0); Mean Corpuscular Hgb Conc. 33.7 g/dL (32.0-36.0); Mean Corpuscular Volume 96.9 fL (80.0-100.0); Monocytes # (auto) 0.6 10 ^3/uL (0-1.3); Monocytes % (auto) 11.4 % (0.0-12.0); Neutrophils # (auto) 2.2 10 ^3/uL (1.6-8.6); Neutrophils % (auto) 43.6 % (37.0-80.0); Nucleated Red Blood Cells % 0.1 %; Red Blood Cells 3.81 10^6/uL (4.0-5.20); Red Cell Distribution Width 13.8 % (11.8-14.3); White Blood Cell 4.9 10^3/uL (4.4-10.8)
[2023-02-05 21:32] LABS: Alanine Aminotransferase 15 U/L (7-40); Albumin 3.8 g/dL (3.2-4.8); Alkaline Phosphatase 52 U/L (46-116); Anion Gap 6 (5-15); Aspartate Aminotransferase 17 U/L (13-40); BUN/Creatinine Ratio 23.9 (10.0-20.0); Bilirubin, Total 0.3 mg/dL (0.2-1.0); Blood Urea Nitrogen 16 mg/dL (9-23); Calcium 8.8 mg/dL (8.7-10.4); Carbon Dioxide 29 mmol/L (20-30); Chloride 105 mmol/L (98-107); Glucose 85 mg/dL (74-106); Magnesium 1.8 mg/dL (1.6-2.6); Potassium 4.3 mmol/L (3.5-5.1); Sodium 140 mmol/L (136-145)
[2023-02-05 21:33] LABS: Total Protein 6.2 g/dL (5.7-8.2)
[2023-02-05] MEDS ORDERED: SODIUM CHLORIDE 0.9% 1,000 ML IV ONE (21:45)
[2023-02-05 23:03] LABS: Urine Bacteria FEW /hpf (None Seen); Urine Blood Negative /uL (Negative); Urine Clarity Clear (Clear); Urine Color Colorless (Yellow); Urine Protein, UAD Negative (Negative); Urine Specific Gravity 1.012 (1.001-1.035); Urine Urobilinogen Normal (Negative); Urine WBC 34 /hpf (0 - 5); Urine pH 6.5 (5.0-8.0)
[2023-02-05] MEDS ORDERED: IOHEXOL 350 MG/ML 100ML IJ ONE (23:07)
[2023-02-06] MEDS ORDERED: CEFTRIAXONE SODIUM 2 GM in D5W 5% 100 ML IV ONE ×2
[2023-02-06] MEDS ORDERED: cefTRIAXone 1GM/50ML D5W 100 ML IV ONE (00:09)
[2023-02-06] MEDS ORDERED: DOCUSATE SOD 100 MG CAP PO PRN (01:30)
[2023-02-06] MEDS ORDERED: ONDANSETRON HCL 4 MG/2 ML VIAL IV PRN (01:30)
[2023-02-06] MEDS ORDERED: ACETAMINOPHEN 325 MG TAB PO PRN (01:30)
[2023-02-06] MEDS ORDERED: MORPHINE SULFATE INJ 2 MG/ml SYRG IV PRN ×2 (02:15→03:00)
[2023-02-06] MEDS: HYDROcodone-ACET 5/325MG TAB PO PRN ×2 (02:31→10:39)
[2023-02-06] MEDS ORDERED: NITROGLYCERIN 0.4 MG SL TAB SL PRN (03:00)
[2023-02-06] MEDS ORDERED: SODIUM CHLORIDE 0.9% 500 ML IV ONE (04:15)
[2023-02-06] MEDS ORDERED: SODIUM CHLOR 0.9% PF (SALINE LOCK) 10ML VIAL/SYR IV SCH (06:00)
[2023-02-06 06:12] LABS: Basophils # (auto) 0 10 ^3/uL (0-0.2); Basophils % (auto) 0.8 % (0.0-2.0); Eosinophils # (auto) 0.2 10 ^3/uL (0-0.8); Lymphocytes % (auto) 44.8 % (10.0-50.0); Mean Corpuscular Hemoglobin 33.3 pg (28.0-32.0); Mean Corpuscular Hgb Conc. 33.3 g/dL (32.0-36.0); Monocytes # (auto) 0.5 10 ^3/uL (0-1.3); Monocytes % (auto) 11.4 % (0.0-12.0); Neutrophils # (auto) 1.7 10 ^3/uL (1.6-8.6); Nucleated Red Blood Cells % 0.1 %; Red Cell Distribution Width 14.1 % (11.8-14.3); White Blood Cell 4.4 10^3/uL (4.4-10.8)
[2023-02-06 06:22] LABS: Alanine Aminotransferase 12 U/L (7-40); Alkaline Phosphatase 40 U/L (46-116); Anion Gap 5 (5-15); BUN/Creatinine Ratio 18.2 (10.0-20.0); Blood Urea Nitrogen 10 mg/dL (9-23); Calcium 7.8 mg/dL (8.5-10.1); Carbon Dioxide 27 mmol/L (20-30); Chloride 111 mmol/L (98-107); Glucose 82 mg/dL (74-106); Potassium 3.4 mmol/L (3.5-5.1); Sodium 143 mmol/L (136-145)
[2023-02-06 06:23] LABS: Albumin 3.2 g/dL (3.2-4.8); Aspartate Aminotransferase 17 U/L (13-40); Bilirubin, Total 0.2 mg/dL (0.2-1.0); Total Protein 5.2 g/dL (5.7-8.2)
[2023-02-06 07:49] VITALS: PULSE 67; RESP 17; O2SAT 96
[2023-02-06] MEDS ORDERED: POTASSIUM CHL 20 Meq TABLET PO ONE (11:30)
[2023-02-06] MEDS ORDERED: CIPR-273 PO (11:35)
[2023-02-06 12:00] VITALS: BP 94/53; PULSE 80; RESP 12; O2SAT 97
[2023-02-07] MEDS ORDERED: cefTRIAXone 1GM/50ML D5W 50 ML IV SCH (09:00)
== END 2023-02-06 12:44 | disposition home or self-care (01) | DRG 347 ==
LOC: ER 19:48 → TELE 02-06 02:54
PROVIDERS: ADMIT Nurse Practitioner Family; ATTEND Internal Medicine Geriatric Medicine
DX: M43.6 Torticollis (principal); E87.6 Hypokalemia; F41.9 Anxiety disorder, unspecified; J45.909 Unspecified asthma, uncomplicated; K21.9 Gastro-esophageal reflux disease without esophagitis; N39.0 Urinary tract infection, site not specified; Z82.49 Family history of ischemic heart disease and other diseases of the circulatory system
CPT/HCPCS: 36415; 70450; 80053; 81001; 82962; 83735; 84484; 84702; 85025; 87086; 87088; 87186; 93005; 96361; 96374; 96375; G0378; J0696; J2405; J7060

== ENCOUNTER → 2023-06-04 | Outpatient (CLI) | payer MEDICAID ==
[~2023-06-04] MED LIST changes: +CIPR-273 PO
[2023-06-04 07:38] LABS: Albumin 4.4 g/dL (3.2-4.8); Bilirubin, Direct 0.2 mg/dL (<0.3); Bilirubin, Total 0.6 mg/dL (0.2-1.0)
== END | disposition home or self-care (01) ==
LOC: LAB 07:07
PROVIDERS: ATTEND Podiatrist
DX: B35.1 Tinea unguium (principal)
CPT/HCPCS: 36415; 80076

== ENCOUNTER 2023-11-04 01:11 | Emergency (ER) | payer OTHER, MEDICAID ==
[~2023-11-04] VITALS: Ht 154.9 cm; Wt 61.4 kg
[~2023-11-04 01:11] MED LIST changes: +CYCL-839 PO; +DICL50TA2 PO; +METO-281 PO; +NITR-87 PO
[2023-11-04 01:58] LABS: Basophils # (auto) 0 10 ^3/uL (0-0.2); Basophils % (auto) 0.5 % (0.0-2.0); Eosinophils # (auto) 0.2 10 ^3/uL (0-0.8); Eosinophils % (auto) 2.7 % (0.0-7.0); Hematocrit 37.8 % (36.0-46.0); Hemoglobin 12.6 g/dL (12.2-16.2); Lymphocytes % (auto) 27.8 % (10.0-50.0); Mean Corpuscular Hemoglobin 30.8 pg (28.0-32.0); Mean Corpuscular Hgb Conc. 33.4 g/dL (32.0-36.0); Mean Corpuscular Volume 92.4 fL (80.0-100.0); Monocytes # (auto) 0.6 10 ^3/uL (0-1.3); Monocytes % (auto) 8.2 % (0.0-12.0); Neutrophils # (auto) 4.4 10 ^3/uL (1.6-8.6); Neutrophils % (auto) 60.8 % (37.0-80.0); Nucleated Red Blood Cells % 0.1 %; Red Blood Cells 4.09 10^6/uL (4.0-5.20); Red Cell Distribution Width 13.5 % (11.8-14.3); White Blood Cell 7.3 10^3/uL (4.4-10.8)
[2023-11-04 02:06] LABS: Alanine Aminotransferase < 9 U/L (7-40); Albumin 4.3 g/dL (3.2-4.8); Alkaline Phosphatase 55 U/L (46-116); Anion Gap 6 (5-15); Aspartate Aminotransferase 10 U/L (13-40); BUN/Creatinine Ratio 14.1 (10.0-20.0); Bilirubin, Total 0.4 mg/dL (0.2-1.0); Blood Urea Nitrogen 10 mg/dL (9-23); Calcium 9.3 mg/dL (8.7-10.4); Carbon Dioxide 26 mmol/L (20-30); Chloride 106 mmol/L (98-107); Glucose 96 mg/dL (74-106); Potassium 3.1 mmol/L (3.5-5.1); Sodium 138 mmol/L (136-145)
[2023-11-04] MEDS: ASPirin 81 mg TAB PO ONE (03:13)
[2023-11-04 03:34] VITALS: PULSE 87; RESP 24; O2SAT 100
[2023-11-04] MEDS: ONDANSETRON HCL 4 MG/2 ML VIAL IV ONE (03:42)
[2023-11-04] MEDS: MORPHINE SULFATE 4 MG/ML SYR/VIAL IV ONE (03:42)
[2023-11-04] MEDS: SODIUM CHLORIDE 0.9% 1,000 ML IV ONE (03:42)
[2023-11-04 06:43] VITALS: PULSE 70; RESP 11; O2SAT 99
[2023-11-04 07:45] VITALS: PULSE 92; RESP 14; O2SAT 99
[2023-11-04 09:00] VITALS: TEMP 97.9
[2023-11-04] MEDS: POTASSIUM CHL 20 Meq TABLET PO ONE (09:48)
[2023-11-04 10:00] VITALS: BP 106/66; PULSE 92; RESP 13; O2SAT 99
[2023-11-04] MEDS: diphenhdrAMINE HCL 50 MG/1 ML VL IV ONE (10:55)
== END 2023-11-04 12:59 | disposition home or self-care (01) ==
LOC: ER 01:11
DX: I24.9 Acute ischemic heart disease, unspecified (principal); F41.9 Anxiety disorder, unspecified; J45.909 Unspecified asthma, uncomplicated; K21.9 Gastro-esophageal reflux disease without esophagitis; Z91.012 Allergy to eggs; Z91.02 Food additives allergy status; Z91.018 Allergy to other foods; Z79.899 Other long term (current) drug therapy
CPT/HCPCS: 36415; 71046; 80053; 84484; 85025; 85379; 93005; 96361; 96374; 96375; 99291; J1200; J2270; J2405; J7030

== ENCOUNTER 2025-03-06 20:50 | Inpatient (IN) | payer BC ==
[~2025-03-06] VITALS: Ht 154.9 cm; Wt 64.9 kg
[~2025-03-06 20:50] MED LIST changes: -CIPR-273 PO; -DICL50TA2 PO; -METO-281 PO; -NITR-87 PO; +[UNRECOGNIZED DRUG - CODE] PO
[2025-03-06 21:11] VITALS: PULSE 104; RESP 22; O2SAT 100
[2025-03-06] MEDS: HYDROmorphone HCL 2 MG/ML VL/or syr IV ONE (21:19)
[2025-03-06 21:30] LABS: Hematocrit 41.3 % (36.0-46.0); Hemoglobin 13.8 g/dL (12.2-16.2); Mean Corpuscular Hemoglobin 31.7 pg (28.0-32.0); Mean Corpuscular Volume 94.8 fL (80.0-100.0); Nucleated Red Blood Cells % 0.0 %
[2025-03-06 21:48] LABS: Chloride 106 mmol/L (98-107); Potassium 3.9 mmol/L (3.5-5.1); Sodium 140 mmol/L (136-145)
[2025-03-06 21:49] LABS: Anion Gap 9 (5-15); Calcium 9.3 mg/dL (8.7-10.4); Carbon Dioxide 25 mmol/L (20-31)
[2025-03-06 21:54] LABS: BUN/Creatinine Ratio 17.3 (10.0-20.0); Blood Urea Nitrogen 17 mg/dL (9-23); Glucose 102 mg/dL (74-106)
--- NOTE | 2025-03-06 21:58 | ED.PDOC ---
History of Present Illness HPI Comments 45 y/o F presents with c/c of epigastric abdominal pain. Patient endorses on sudden, unprovoked, and atraumatic onset of pain 40x minutes prior to ED arrival, this evening. Pain is stated to radiate to her sternal chest and mid- back area. She states on having associated shortness of breath, lightheadedness, nausea, and vomiting. No endorsed recent prior ailments, sick contacts, spoiled food consumption, stressors, strenuous activities, travel, or further pertinent events. Significant history for hypotension and 3x brain tumors, which she is being seen for at [facility] neurosurgery department. She denies on having any bloody or bilious vomitus, diarrhea, constipation, fever, or further acute symptoms. Per previous [facility] medical records, patient has a history of chronic gastritis, enterocolitis, REVIEW OF SYSTEMS: General: No fever, no chills, or fatigue HEENT: No sore throat, no earache, no congestion, no neck pain. Cardiac: Chest pain, heaviness, no palpitations. Lungs: Shortness of breath, no cough. GI: Abdominal pain, nausea, vomiting, no diarrhea, no constipation : No dysuria, frequency, or urgency. No hematuria. Musculoskeletal: Back pain. No joint pain , no joint swelling, no extremity edema. Skin: No rash, no itching. Neuro: No headache, no dizziness, no weakness PHYSICAL EXAM: General: Awake, alert and oriented. Moderate distress. Skin: Skin in warm, dry and intact. Appropriate color for ethnicity. HEENT: The head is normocephalic and atraumatic. Conjunctivae are clear without exudates or hemorrhage. Sclera is non-icteric. EOM are intact. No signs of nystagmus. Eyelids are normal in appearance without swelling or lesions. Oral mucosa is pink and moist Neck: The neck is supple with normal range of motion. No JVD. Cardiac: Heart rate and rhythm are normal. No murmurs, gallops, or rubs are auscultated. Respiratory: No signs of respiratory distress. Lung sounds are clear in all lobes bilaterally without rales, rhonchi, or wheezes. Abdominal: Epigastric abdominal tenderness. Remaining abdomen is soft, non- tender without distention, guarding or rigidity. Bowel sounds are present and normoactive in all four quadrants. Extremities: Upper and lower extremities are atraumatic in appearance without deformity or edema. Radial pulses are equal, bilaterally. Neurological: The patient is awake, alert and oriented to person, place, and wing e with normal speech. Speech is clear. There is no facial asymmetry. Coarse tremor present. Psychiatric: Appropriate mood and affect. Good judgement and insight. Chief Complaint: Chest Pain Time Seen by MD: 20:50 Primary Care Provider: CAREN Allergies: Coded Allergies: Egg-derived Products (Unverified Allergy, Intermediate, 03/13/20) food allergy Avocado (Unverified Allergy, Unknown, 03/13/20) Home Meds Active Scripts Simethicone (Gas-X Extra Strength) 125 Mg Chw, 125 MG PO Q4HPRN PRN, #20 TA B.CHEW Prov:CORINE TERRY MD 09/27/24 Omeprazole (Gnp Omeprazole) 20 Mg Tab, 40 MG PO BID, #60 TAB 1 Refill Prov:CORINE TERRY MD 09/27/24 Cyclobenzaprine Hcl (Cyclobenzaprine Hcl) 10 Mg Tab, 10 MG PO TID for 5 Days, #15 TAB Prov:TYRONE SIDHU MD 08/15/23 Baclofen (Baclofen) 10 Mg Tab, 1 TAB PO BID, #10 TAB as needed for muscle spasm Prov:MADELINE RUIZ Q WIRE THREADER 01/11/23 Hydrocodone-Acetaminophen (Hydrocodone Bitartrate/AC 5-325 mg) 1 Tab Tab, 1 TAB PO Q6HR, #10 TAB as needed for pain Prov:MADELINE RUIZ Q WIRE THREADER 01/11/23 Ondansetron (Zofran) 4 Mg Tab, 8 MG PO Q8HP PRN, #30 TAB please prescribe OTD form Prov:JULIAN LARA MD 05/16/21 Mode of Arrival: Wheelchair Past Medical History PAST MEDICAL HISTORY: Hypotension Past Medical History (Other): 3x brain tumors Enterocolitis Chronic gastritis HEALTHCARE EDUCATOR History: Other Family History Family History: Family hx of Cancer, Family hx of heart karol, Family hx of HTN Social History Smoker: Non-Smoker Alcohol: Denies ETOH Use Drugs: Denies Drug Use Lives In: Home Was a procedure done? Was a procedure done?: No EKG EKG : Pulse Rate (adult): 114 [place]: Normal Cardiac Rhythm: Afib Block: None Hypertrophy: None ST: Normal Differential Dx Considerations may include: Differential diagnoses considered include: Abdominal aortic aneurysm, CT, esophageal rupture, intestinal obstruction, mesenteric ischemia, perforated viscus or solid organ rupture, CHF with hepatomegaly, pneumonia, abscess, appendicitis, biliary disease, diverticulitis, gastritis, gastroenteritis, hepatitis, hernia, inflammatory bowel disease, pancreatitis, peptic ulcer d isease, urinary tract infection, ureteral colic, constipation, GERD, irritable syndrome, abdominal wall pain, nonspecific abdominal pain, herpes zoster, nephrolithiasis. [ ]Also ruptured ectopic , ovarian torsion/cyst, tubo- ovarian abscess, PID, endometriosis, mittleschmerz. X-Ray, Labs, Meds, VS Vital Signs Date Time Temp Pulse Resp B/P (MAP) Pulse Ox O2 Delivery O2 Flow Rate FiO2 03/07/25 04:00 79 11 106/68 (81) 92 03/07/25 03:00 84 9 102/61 (75) 97 03/07/25 02:00 91 11 103/61 (75) 92 03/07/25 01:11 96 11 105/61 03/07/25 01:00 96 11 105/61 (76) 92 03/07/25 00:41 101 16 118/67 03/07/25 00:06 83 03/07/25 00:00 87 11 118/67 (84) 100 03/06/25 23:00 98.3 87 10 108/60 (76) 97 98.3 03/06/25 22:50 97 Nasal Cannula* 2 28 03/06/25 22:30 89 19 118/75 03/06/25 21:58 114 03/06/25 21:49 87 03/06/25 21:19 90 20 124/76 03/06/25 21:11 104 22 100 Room Air* 0 21 03/06/25 21:11 98.8 104 22 124/76 (92) 100 98.8 03/06/25 20:58 97.5 20 16 151/91 100 97.5 03/06/25 20:55 114 Lab Test 03/07/25 03:27 03/07/25 00:48 03/06/25 21:07 Range/Units Troponin I High Sensitivity 6 7 5 </=34 ng/L Beta HCG, Quantitative Pending White Blood Count 5.8 4.4-10.8 10^3/uL Red Blood Count 4.35 4.0-5.20 10^6/uL Hemoglobin 13.8 12.2-16.2 g/dL Hematocrit 41.3 36.0-46.0 % Mean Corpuscular Volume 94.8 80.0-100.0 fL Mean Corpuscular Hemoglobin 31.7 28.0-32.0 pg Mean Corpuscular Hemoglobin Concent 33.5 32.0-36.0 g/dL Red Cell Distribution Width 14.4 H 11.8-14.3 % Platelet Count 207 140-450 10^3/uL Mean Platelet Volume 9.0 6.9-10.8 fL Neutrophils (%) (Auto) 42.2 37.0-80.0 % Lymphocytes (%) (Auto) 45.2 10.0-50.0 % Monocytes (%) (Auto) 8.1 0.0-12.0 % Eosinophils (%) (Auto) 3.9 0.0-7.0 % Basophils (%) (Auto) 0.6 0.0-2.0 % Neutrophils # (Auto) 2.5 1.6-8.6 10 ^3/uL Lymphocytes # (Auto) 2.6 0.4-5.4 10 ^3/uL Monocytes # (Auto) 0.5 0-1.3 10 ^3/uL Eosinophils # (Auto) 0.2 0-0.8 10 ^3/uL Basophils # (Auto) 0 0-0.2 10 ^3/uL Nucleated Red Blood Cells 0.0 % Sodium Level 140 136-145 mmol/L Potassium Level 3.9 3.5-5.1 mmol/L Chloride Level 106 98-107 mmol/L Carbon Dioxide Level 25 20-31 mmol/L Anion Gap 9 5-15 Blood Urea Nitrogen 17 9-23 mg/dL Creatinine 0.98 0.550-1.02 mg/dL Glomerular Filtration Rate Calc 72 >90 mL/min BUN/Creatinine Ratio 17.3 10.0-20.0 Serum Glucose 102 74-106 mg/dL Calcium Level 9.3 8.7-10.4 mg/dL Total Bilirubin 0.4 0.2-1.0 mg/dL Aspartate Amino Transferase (AST) 42 H 13-40 U/L Alanine Aminotransferase (ALT) 14 7-40 U/L Alkaline Phosphatase 56 46-116 U/L B-Type Natriuretic Peptide 24.04 0-100 pg/mL Lipase 56 H 12-53 U/L Current Medications Medications (Trade) Dose Ordered Sig/Maico Route Start Time Stop Time Status Last Admin Hydromorphone HCl (Dilaudid Injection) 1 mg ONCE ONCE IV 03/06/25 21:00 03/06/25 21:01 DC 03/06/25 21:19 Hydromorphone HCl (Dilaudid Injection) 0.5 mg ONCE ONCE IV 03/07/25 00:30 03/07/25 00:32 DC 03/07/25 00:41 Ondansetron HCl (Zofran) 4 mg ONCE ONCE IV 03/07/25 00:30 03/07/25 00:32 DC 03/07/25 00:41 Sodium Chloride 500 ml @ 500 mls/hr Q1H ONCE IV 03/07/25 01:00 03/07/25 01:59 DC 03/07/25 01:03 Ketorolac Tromethamine (Toradol Injection) 30 mg ONCE ONCE IV 03/07/25 04:45 03/07/25 04:46 DC 03/07/25 04:57 Acetaminophen (Tylenol Tablet) 1,000 mg ONCE ONCE PO 03/07/25 04:45 03/07/25 04:46 DC 03/07/25 04:56 [place] [id number] Ph: [phone] DIAGNOSTIC IMAGING Diagnostic Imaging Report : [id number] Signed PATIENT: SHIRLEY BRADFORD ACCT: [id number] UNIT: [id number] : 01/23/1980 LOC: ER ROOM / BED: / AGE / SEX: 45 / F ADM STATUS: REG ER SERVICE 36 ORDERING PHYSICIAN: CARIDAD QUILES MD PROCEDURE(s): CAPIV - CT CHEST/AB/PL W CON- IV ONLY REASON: Severe epigastric/substernal pain ORDER NUMBER(s): [id number], ACCESSION NUMBER(s): [id number] Exam: CT CT CHEST/AB/PL W CON- IV ONLY History: Severe epigastric/substernal pain Comparison Study: XY CHEST XRAY 1 VIEW on DOS: 03/06/25, CT CT AB PEL WO CON-NO ORAL OR IV on DOS: 09/25/24, XY CHEST TWO VIEWS ROUTINE on DOS: 11/04/23, CT ABD PELVIS WO CONTRAST on DOS: 05/13/21, CHEST PORTABLE on DOS: 05/13/21 Technique: Multidetector spiral CT of the chest, abdomen and pelvis was performed from lower neck to pubic symphysis. Intravenous contrast was administered during this examination. Portal venous imaging was obtained. Axial, coronal and sagittal multiplanar reformats were performed by the technologist on a separate workstation. Radiation Dose : 1. Chest/Abdomen/Pelvis: CTDIvol 10.1 mGy, DLP 698.14 mGy*cm. Findings: Lower neck: Normal thyroid. Lungs: No focal consolidation, pleural effusion or pneumothorax. Moderate posterior bibasilar atelectasis. Heart/Vascular Structures: Normal heart size. No pericardial effusion. Lymph Nodes: No adenopathy Pleura: No pleural effusion or significant pneumothorax. Liver: The liver is normal in size. No focal lesions. Normal hepatic vascular enhancement. Gallbladder and Biliary Tree: Cholelithiasis and gallbladder distention. Spleen: Unremarkable Pancreas: The pancreas is normal in appearance without focal lesions or abnormal enhancement. Adrenal Glands: Unremarkable Kidneys: Kidneys demonstrate normal symmetric enhancement without focal lesions, calculi or hydronephrosis. Bladder: Unremarkable Bowel: The stomach is grossly normal in appearance with Postsurgical changes. Retained colorectal stool. Diverticulosis coli without CT evidence of acute diverticulitis. Small bowel and colon are otherwise normal in caliber and distribution. The appendix is not visualized; however, no secondary findings of acute appendicitis identified. Ascites: Absent Lymphadenopathy: No mesenteric, retroperitoneal or periportal lymphadenopathy. Abdominal Wall and Mesentery: Unremarkable. Vasculature: The visualized abdominal aorta is normal in size and caliber. Abdominal and pelvic vessels demonstrate normal enhancement. Pelvic Organs: Unremarkable Musculoskeletal: No aggressive focal bony lesions, acute fractures or dislocation. IMPRESSION: 1. No acute findings involving the chest, abdomen or pelvis. 2. Cholelithiasis and gallbladder distention. 3. Diverticulosis coli without CT evidence of acute diverticulitis. 4. Retained colorectal stool. ATED BY: JONO AGUIRRE MD DICTATED DATE/TIME: 03/07/2547 SIGNED BY: JONO AGUIRRE MD SIGNED DATE/TIME: 03/07/2547 CC: [address] [address] Ph: [phone] DIAGNOSTIC IMAGING Diagnostic Imaging Report : [id number] Signed PATIENT: SHIRLEY BRADFORD ACCT: [id number] UNIT: [id number] : 01/23/1980 LOC: ER ROOM / BED: / AGE / SEX: 45 / F ADM STATUS: REG ER SERVICE 57 ORDERING PHYSICIAN: CARIDAD QUILES MD PROCEDURE(s): CXR1 - CHEST XRAY 1 VIEW REASON: cp ORDER NUMBER(s): [id number], ACCESSION NUMBER(s): [id number] CHEST RADIOGRAPH Indication: cp Technique: 1 view Comparison: 11/04/2023 FINDINGS: Lines and Tubes: External leads. Lungs/Pleura: No focal consolidation, pleural effusion or pneumothorax. Cardiomediastinum: Unremarkable. Other: No acute osseous abnormality. IMPRESSION: 1. No acute cardiopulmonary abnormality. ATED BY: DANNA MAJOR MD DICTATED DATE/TIME: 03/06/252238 SIGNED BY: DANNA MAJOR MD SIGNED DATE/TIME: 03/06/252238 CC: Time of 1ST Reevaluation: 21:20 Reevaluation 1ST: Unchanged Patient Education/Counseling: Treatment, Need For Follow Up Family Education/Counseling: No Family Present SEPSIS Sepsis Screen Date sepsis recognized/suspect: Mar 06, 2025 Time Sepsis recognized/suspect: 2016 Recent Procedure: No On Antibiotic Therapy: No Respiratory Rate >20: Yes Heart Rate >90: Yes Temp<36 C (96.8 F) or >38.3 C: No SBP <90 or MAP <65 mmHG: No New Acute Mental Status Change: No Is the patient on CPAP, BIPAP,: No Physician Orders Chest Xray 1 View (03/06/25 20:58) Vital Signs Q1HR (03/06/25 20:58) Saline Lock (03/06/25 20:58) Sales Program Manager (03/06/25 ) Electrocardigram (03/06/25 21:58) Electrocardigram (03/06/25 23:58) Ct Chest/Ab/Pl W Con- Iv Only (03/06/25 22:37) Abdomen Complete Sonogram (03/07/25 04:05) Vital Signs Date Time Temp Pulse Resp B/P (MAP) Pulse Ox O2 Delivery O2 Flow Rate FiO2 03/07/25 04:00 79 11 106/68 (81) 92 03/07/25 03:00 84 9 102/61 (75) 97 03/07/25 02:00 91 11 103/61 (75) 92 03/07/25 01:11 96 11 105/61 03/07/25 01:00 96 11 105/61 (76) 92 03/07/25 00:41 101 16 118/67 03/07/25 00:06 83 03/07/25 00:00 87 11 118/67 (84) 100 03/06/25 23:00 98.3 87 10 108/60 (76) 97 98.3 03/06/25 22:50 97 Nasal Cannula* 2 28 03/06/25 22:30 89 19 118/75 03/06/25 21:58 114 03/06/25 21:49 87 03/06/25 21:19 90 20 124/76 03/06/25 21:11 104 22 100 Room Air* 0 21 03/06/25 21:11 98.8 104 22 124/76 (92) 100 98.8 03/06/25 20:58 97.5 20 16 151/91 100 97.5 03/06/25 20:55 114 Laboratory Tests Test 03/06/25 21:07 White Blood Count 5.8 10^3/uL (4.4-10.8) Medications Medications Dose Ordered Sig/[place]ico Route Start Time Stop Time Status Last Admin Dose Admin Acetaminophen 1,000 mg ONCE ONCE PO 03/07/25 04:45 03/07/25 04:46 DC 03/07/25 04:56 Hydromorphone HCl 0.5 mg ONCE ONCE IV 03/07/25 00:30 03/07/25 00:32 DC 03/07/25 00:41 Hydromorphone HCl 1 mg ONCE ONCE IV 03/06/25 21:00 03/06/25 21:01 AL 03/06/25 21:19 Ketorolac Tromethamine 30 mg ONCE ONCE IV 03/07/25 04:45 03/07/25 04:46 DC 03/07/25 04:57 Ondansetron HCl 4 mg ONCE ONCE IV 03/07/25 00:30 03/07/25 00:32 DC 03/07/25 00:41 Sodium Chloride 500 ml @ 500 mls/hr Q1H ONCE IV 03/07/25 01:00 03/07/25 01:59 DC 03/07/25 01:03 Departure 1 Departure Time of Disposition: 05:25 Impression: Primary Impression: Intractable abdominal pain Additional Impression: Cholelithiasis Disposition: ADMITTED INPATIENT Condition: Stable Comments MDM: 45-year-old female with likely biliary colic. Labs and imaging reviewed. Imaging shows cholelithiasis with a distended gallbladder. Patient continues to report severe abdominal pain. Patient is stabilized in the ED. Patient admitted to hospitalist service for further treatment, evaluation and monitoring. Extensive evaluation was performed in attempt to identify or rule out: (See differential diagnosis section) The following tests were ordered, and results were reviewed by me and discussed with patient: (See diagnostic results section) The following test were independently interpreted by me: EKG I reviewed and agreed with the following test results read by other providers: Chest x-ray I reviewed the following notes from the pt's past medical encounters: November 04, 2023 encounter for acute chest pain Additional information was gathered from interviewing the following independent historians: N/A Discussion of management or test interpretation with external physician/other qualified health rn primary care: Reagan Moreno Decision regarding hospitalization or escalation of hospital level of care: Risk and benefits of admission for further treatment of patient's condition was considered. Due to patient's current clinical condition, high risk of decline and poor outcome if discharged and need for further inpatient management and monitoring, patient will be admitted to the hospital. Critical Care Note Critical Care Time?: No Stability Stability form required: No Heart Score Heart Score: Heart Score Response (Comments) Value History N/A 0 EKG N/A 0 Age N/A 0 Risk Factors N/A 0 Troponin N/A 0 Total 0 I personally scribed for CARIDAD QUILES MD ([email or web address]) on 03/06/25 at 21:58. Electronically submitted by Delon Mann ([email or web address]). I personally scribed for CARIDAD QUILES MD ([email or web address]) on 03/07/25 at 04:21. Electronically submitted by Delon Mann ([email or web address]). CARIDAD QUILES MD Mar 06, 2025 21:58
[2025-03-06 22:11] LABS: Alanine Aminotransferase 14.0 U/L (7-40); Alkaline Phosphatase 56.0 U/L (46-116); Bilirubin, Total 0.4 mg/dL (0.2-1.0)
--- NOTE | 2025-03-06 22:41 | DVH ---
CHEST RADIOGRAPH Indication: cp Technique: 1 view Comparison: 11/04/2023 FINDINGS: Lines and Tubes: External leads. Lungs/Pleura: No focal consolidation, pleural effusion or pneumothorax. Cardiomediastinum: Unremarkable. Other: No acute osseous abnormality. IMPRESSION: 1. No acute cardiopulmonary abnormality.
[2025-03-06 22:44] LABS: Lipase 56.0 U/L (12-53)
[2025-03-06 22:50] VITALS: O2SAT 100; O2SAT 97
[2025-03-06] MEDS: IOHEXOL 300 MG/ML 100ML BOTTLE IJ ONE (23:35)
[2025-03-07] MEDS: HYDROmorphone HCL 2 MG/ML VL/or syr IV ONE (00:41)
[2025-03-07] MEDS: ONDANSETRON HCL 4 MG/2 ML VIAL IV ONE (00:41)
--- NOTE | 2025-03-07 00:51 | DVH ---
Exam: CT CT CHEST/AB/PL W CON- IV ONLY History: Severe epigastric/substernal pain Comparison Study: XY CHEST XRAY 1 VIEW on DOS: 03/06/25, CT CT AB PEL WO CON-NO ORAL OR IV on DOS: , XY CHEST TWO VIEWS ROUTINE on DOS: 11/04/23, CT ABD PELVIS WO CONTRAST on DOS: 05/13/21, CHEST PO RTABLE on DOS: 05/13/21 Technique: Multidetector spiral CT of the chest, abdomen and pelvis was performed from lower neck to pubic symphysis. Intravenous contrast was administered during this examination. Portal venous imagi ng was obtained. Axial, coronal and sagittal multiplanar reformats were performed by the technologist on a separate workstation. Radiation Dose : 1. Chest/Abdomen/Pelvis: CTDIvol 10.1 mGy, DLP 698.14 mGy*cm. Findings: Lower neck: Normal thyroid. Lungs: No focal consolidation, pleural effusion or pneumothorax. Moderate posterior bibasilar atelect asis. Heart/Vascular Structures: Normal heart size. No pericardial effusion. Lymph Nodes: No adenopathy Pleura: No pleural effusion or significant pneumothorax. Liver: The liver is normal in size. No focal lesions. Normal hepatic vascular enhancement. Gallbladder and Biliary Tree: Cholelithiasis and gallbladder distention. Spleen: Unremarkable Pancreas: The pancreas is normal in appearance without focal lesions or abnormal enhancement. Adrenal Glands: Unremarkable Kidneys: Kidneys demonstrate normal symmetric enhancement without focal lesions, calculi or hydroneph rosis. Bladder: Unremarkable Bowel: The stomach is grossly normal in appearance with Postsurgical changes. Retained colorectal sto ol. Diverticulosis coli without CT evidence of acute diverticulitis. Small bowel and colon are otherw ise normal in caliber and distribution. The appendix is not visualized; however, no secondary findin gs of acute appendicitis identified. Ascites: Absent Lymphadenopathy: No mesenteric, retroperitoneal or periportal lymphadenopathy. Abdominal Wall and Mesentery: Unremarkable. Vasculature: The visualized abdominal aorta is normal in size and caliber. Abdominal and pelvic vess els demonstrate normal enhancement. Pelvic Organs: Unremarkable Musculoskeletal: No aggressive focal bony lesions, acute fractures or dislocation. IMPRESSION: 1. No acute findings involving the chest, abdomen or pelvis. 2. Cholelithiasis and gallbladder distention. 3. Diverticulosis coli without CT evidence of acute diverticulitis. 4. Retained colorectal stool.
[2025-03-07] MEDS: SODIUM CHLORIDE 0.9% 500 ML IV ONE (01:03)
--- NOTE | 2025-03-07 03:40 | ECG ---
[facility] Test Date: 2025-03-06 Test Time: 21:49:45 Pat Name: SHIRLEY BRADFORD Department: [facility] ED Patient ID: [id number] Room: Gender: F Automation Test Engineer: YOVANNY : 1980-01-23 Requested By: CARIDAD QUILES Order Number: [id number] Reading MD: Measurements Intervals [place] Rate: 87 P: 74 NC: 133 QRS: 43 QRSD: 93 T: 59 QT: 363 QTc: 437 Interpretive Statements Sinus rhythm Low voltage, precordial leads Please click the below link to view image of tracing.
[2025-03-07] MEDS: ACETAMINOPHEN 325 MG TAB PO ONE (04:56)
[2025-03-07] MEDS: KETOROLAC TROMETH 30 MG/ML 1ML VIAL IV ONE (04:57)
[2025-03-07] MEDS ORDERED: ONDANSETRON HCL 4 MG/2 ML VIAL IV PRN (05:00)
[2025-03-07] MEDS ORDERED: ACETAMINOPHEN 325 MG TAB PO PRN (05:00)
[2025-03-07] MEDS ORDERED: DOCUSATE SOD 100 MG CAP PO PRN (05:00)
[2025-03-07] MEDS ORDERED: NITROGLYCERIN 0.4 MG SL TAB SL PRN (05:00)
[2025-03-07] MEDS ORDERED: MORPHINE SULFATE INJ 2 MG/ml SYRG IV PRN ×2 (05:00)
[2025-03-07] MEDS: SODIUM CHLORIDE 0.9% 1,000 ML IV SCH (05:10)
--- NOTE | 2025-03-07 05:42 | DVHHP2 ---
DANTE HEARN AGENCY LEGAL COUNSEL 03/07/25 0542: History of Present Illness Reason for Visit: abdominal pain History of Present Illness 45-year-old female with past medical history of 3 brain tumors, hypotension, constipation presents with complaints of sharp epigastric pain sudden onset last night. Pain is 10/10 radiating towards the back. Patient was treated with 1.5 mg IV Dilaudid with some improvement in pain. However states pain is now returning. She is also endorsing shortness of breath, nausea, vomiting. States she ate at 2:00 p.m. and had crackers with spread. Denied eating anything greasy. Also endorses previous GI problems and she takes MOM regularly. During the emergency department evaluation CBC is unremarkable. CMP is unremarkable AST 42, ALT 14, total bilirubin 0.4, alk-phos 56, lipase 56, troponins . CT chest / abdomen and pelvis suggesting cholelithiasis and gallbladder distention. Otherwise no acute findings. At this time patient denies fevers, chills, dizziness, syncope, hematemesis, hematochezia, melena. Cardiovascular: Other (Hypotension) CHURCH ADMINISTRATOR: Other (Tumor) GI: Constipation Smoke: No ALCOHOL: none Drugs: None Lives: with Family Review of Systems Constitutional: No: Fever, Chills, Sweats, Weakness, Malaise, Other Eyes: No: Pain, Vision change, Conjunctivae inflammation, Eyelid inflammation, Other, Redness ENT: No: Ear pain, Ear discharge, Nose pain, Nose discharge, Nose congestion, Mouth pain, Mouth swelling, Throat pain, Throat swelling, Other Respiratory: No: Cough, Dry, Shortness of breath, SOB with excertion, Wheezing, Hemoptysis, Pleuritic Pain, Sputum, Wheezing, Other Cardiovascular: Chest Pain; No: Palpitations, Orthopnea, Paroxysmal Noc. Dyspnea, Edema, Lt Headedness, Other Gastrointestinal: Nausea, Vomiting, Abdominal Pain; No: Diarrhea, Constipation, Melena, Hematochezia, Other Genitourinary: No Dysuria, No Frequency, No Incontinence, No Hematuria, No Retention, No Other Musculoskeletal: No: other, neck pain, shoulder pain, arm pain, back pain, hand pain, leg pain, foot pain Skin: No: Rash, Lesions, Jaundice, Bruising, Other Neurological: No: Weakness, Numbness, Incoordination, Change in speech, Confusion, Seizures, Other Allergies: Coded Allergies: Egg-derived Products (Unverified Allergy, Intermediate, 03/13/20) food allergy Avocado (Unverified Allergy, Unknown, 03/13/20) Medications Current Medications Medications Dose Ordered Sig/Maico Route Start Time Stop Time Status Last Admin Dose Admin Sodium Chloride 1,000 ml @ 100 mls/hr Q10H IV 03/07/25 05:00 03/07/25 05:10 100 MLS/HR Docusate Sodium 100 mg BIDPRN PRN PO 03/07/25 05:00 Acetaminophen 650 mg Q6HP PRN PO 03/07/25 05:00 Ondansetron HCl 4 mg Q4HP PRN IV 03/07/25 05:00 Morphine Sulfate 4 mg Q4HPRN PRN IV 03/07/25 05:00 Enoxaparin Sodium 40 mg DAILY SC 03/07/25 10:00 Nitroglycerin 0.4 mg Q5MINP PRN SL 03/07/25 05:00 Morphine Sulfate 2 mg Q30M PRN IV 03/07/25 05:00 Piperacillin Sod/ Tazobactam Sod 100 ml @ 100 mls/hr Q8HR IV 03/07/25 06:00 Pantoprazole Sodium 40 mg DAILY IV 03/07/25 10:00 Exam Vital Signs Vital Signs Date Time Temp Pulse Resp B/P (MAP) Pulse Ox O2 Delivery O2 Flow Rate FiO2 03/07/25 04:00 79 11 106/68 (81) 92 03/06/25 23:00 98.3 98.3 03/06/25 22:50 Nasal Cannula* 2 28 General Appearance: Alert, Oriented X3, Cooperative, moderate distress HEENT: Atraumatic, PERRLA, EOMI Respiratory: Clear to auscultation, Normal air movement Cardiovascular: Regular rate, Normal S1, Normal S2 Abdominal: Normal bowel sounds, Soft, Other (Epigastric tenderness to palpation) Extremities: No clubbing, No cyanosis, No edema, Normal pulses Skin: No breakdown, No significant lesion Neuro: Normal speech, Strength at 5/5 X4 ext, Normal tone, Sensation intact, Cranial nerves 3-12 NL Psych/Mental Status: Mental status NL, Mood NL Labs/Xrays Labs Test 03/07/25 03:27 03/07/25 00:48 03/06/25 21:07 Range/Units Troponin I High Sensitivity 6 </=34 ng/L White Blood Count 5.8 4.4-10.8 10^3/uL Red Blood Count 4.35 4.0-5.20 10^6/uL Hemoglobin 13.8 12.2-16.2 g/dL Hematocrit 41.3 36.0-46.0 % Mean Corpuscular Volume 94.8 80.0-100.0 fL Mean Corpuscular Hemoglobin 31.7 28.0-32.0 pg Mean Corpuscular Hemoglobin Concent 33.5 32.0-36.0 g/dL Red Cell Distribution Width 14.4 H 11.8-14.3 % Platelet Count 207 140-450 10^3/uL Mean Platelet Volume 9.0 6.9-10.8 fL Neutrophils (%) (Auto) 42.2 37.0-80.0 % Lymphocytes (%) (Auto) 45.2 10.0-50.0 % Monocytes (%) (Auto) 8.1 0.0-12.0 % Eosinophils (%) (Auto) 3.9 0.0-7.0 % Basophils (%) (Auto) 0.6 0.0-2.0 % Neutrophils # (Auto) 2.5 1.6-8.6 10 ^3/uL Lymphocytes # (Auto) 2.6 0.4-5.4 10 ^3/uL Monocytes # (Auto) 0.5 0-1.3 10 ^3/uL Eosinophils # (Auto) 0.2 0-0.8 10 ^3/uL Basophils # (Auto) 0 0-0.2 10 ^3/uL Nucleated Red Blood Cells 0.0 % Sodium Level 140 136-145 mmol/L Potassium Level 3.9 3.5-5.1 mmol/L Chloride Level 106 98-107 mmol/L Carbon Dioxide Level 25 20-31 mmol/L Anion Gap 9 5-15 Blood Urea Nitrogen 17 9-23 mg/dL Creatinine 0.98 0.550-1.02 mg/dL Glomerular Filtration Rate Calc 72 >90 mL/min BUN/Creatinine Ratio 17.3 10.0-20.0 Serum Glucose 102 74-106 mg/dL Calcium Level 9.3 8.7-10.4 mg/dL Total Bilirubin 0.4 0.2-1.0 mg/dL Aspartate Amino Transferase (AST) 42 H 13-40 U/L Alanine Aminotransferase (ALT) 14 7-40 U/L Alkaline Phosphatase 56 46-116 U/L B-Type Natriuretic Peptide 24.04 0-100 pg/mL Lipase 56 H 12-53 U/L SEPSIS Sepsis Screen Date sepsis recognized/suspect: Mar 06, 2025 Time Sepsis recognized/suspect: 2299 Recent Procedure: No On Antibiotic Therapy: No Respiratory Rate >20: No Heart Rate >90: No Temp<36 C (96.8 F) or >38.3 C: No SBP <90 or MAP <65 mmHG: No New Acute Mental Status Change: No Is the patient on CPAP, BIPAP,: No Physician Orders Ct Chest/Ab/Pl W Con- Iv Only (03/06/25 22:37) Abdomen Complete Sonogram (03/07/25 04:05) Admit (03/07/25 04:51) Code Status (03/07/25 04:51) Vital Signs .PER UNIT PROTOCOL (03/07/25 04:51) Review Orders With Adm.Md (03/07/25 04:51) Encourage Activity As Tolerate (03/07/25 04:51) Npo (Nothing By Mouth) Diet (03/07/25 Breakfast) Sodium Chloride 0.9% (03/07/25 05:00) Docusate Sodium Capsule (Colace Capsule) (03/07/25 05:00) Acetaminophen Tablet (Tylenol Tablet) (03/07/25 05:00) Notify Md Of Changes From Base (03/07/25 04:51) Advance Directive (03/07/25 04:51) Basic Metabolic Panel (03/07/25 05:00) Basic Metabolic Panel (03/08/25 05:00) Basic Metabolic Panel (03/09/25 05:00) Basic Metabolic Panel (03/10/25 05:00) Complete Blood Count (03/07/25 05:00) Complete Blood Count (03/08/25 05:00) Complete Blood Count (03/09/25 05:00) Complete Blood Count (03/10/25 05:00) Complete Blood Count (03/11/25 05:00) Patient Condition (03/07/25 04:51) Allergies (03/07/25 04:51) Ondansetron Hcl (Zofran) (03/07/25 05:00) Morphine Sulfate Injection (03/07/25 05:00) Enoxaparin Sodium (Lovenox) (03/07/25 10:00) Nitroglycerin Sublingual (Ntrostat Subli (03/07/25 05:00) Morphine Sulfate Injection (03/07/25 05:00) Stat Ekg For Chest Pain (03/07/25 04:51) Notify Md Of Changes From Base (03/07/25 04:51) Ble[employer] [place] Pulp For 24 Hours (03/07/25 04:51) Emergency Dysrhythmia Protocol (03/07/25 04:51) Rhythm Strips Once Every Shift (03/07/25 04:51) Oxygen By Nasal Cannula (03/07/25 04:51) Nm Hida Scan (03/07/25 04:51) Urinalysis (03/07/25 04:51) Beta Hcg, Quantitative (03/07/25 04:51) * Surgical Consult (03/07/25 ) Piperacillin-Tazob 3.375gm (Zosyn 3.375g (03/07/25 06:00) Pantoprazole (Protonix) (03/07/25 10:00) Vital Signs Date Time Temp Pulse Resp B/P (MAP) Pulse Ox O2 Delivery O2 Flow Rate FiO2 03/07/25 04:00 79 11 106/68 (81) 92 03/07/25 03:00 84 9 102/61 (75) 97 03/07/25 02:00 91 11 103/61 (75) 92 03/07/25 01:11 96 11 105/61 03/07/25 01:00 96 11 105/61 (76) 92 03/07/25 00:41 101 16 118/67 03/07/25 00:06 83 03/07/25 00:00 87 11 118/67 (84) 100 03/06/25 23:00 98.3 87 10 108/60 (76) 97 98.3 03/06/25 22:50 97 Nasal Cannula* 2 28 03/06/25 22:30 89 19 118/75 03/06/25 21:58 114 03/06/25 21:49 87 Laboratory Tests Test 03/06/25 21:07 White Blood Count 5.8 10^3/uL (4.4-10.8) Medications Medications Dose Ordered Sig/Maico Route Start Time Stop Time Status Last Admin Dose Admin Acetaminophen 1,000 mg ONCE ONCE PO 03/07/25 04:45 03/07/25 04:46 DC 03/07/25 04:56 1,000 MG Hydromorphone HCl 0.5 mg ONCE ONCE IV 03/07/25 00:30 03/07/25 00:32 [place] 03/07/25 00:41 0.5 MG Hydromorphone HCl 1 mg ONCE ONCE IV 03/06/25 21:00 03/06/25 21:01 W[place] 03/06/25 21:19 1 MG Ketorolac Tromethamine 30 mg ONCE ONCE IV 03/07/25 04:45 03/07/25 04:46 WY 03/07/25 04:57 30 MG Ondansetron HCl 4 mg ONCE ONCE IV 03/07/25 00:30 03/07/25 00:32 WY 03/07/25 00:41 4 MG Sodium Chloride 500 ml @ 500 mls/hr Q1H ONCE IV 03/07/25 01:00 03/07/25 01:59 DC 03/07/25 01:03 500 MLS/HR Sodium Chloride 1,000 ml @ 100 mls/hr Q10H IV 03/07/25 05:00 03/07/25 05:10 100 MLS/HR Assessment/Plan Assessment/Plan Cholecystitis R/O Abdominal pain. Plan Admit medical floor Consult general surgeon. IVF, IV ABX NPO diet Hida scan GI ppx protonix / DVT ppx scd Plan discussed with: Patient My Orders Orders - DANTE HEARN AGENCY LEGAL COUNSEL Procedure Category Date Status Time Abdomen Complete US 03/07/25 Logged Sonogram 04:05 Admit ADMIT 03/07/25 Transmitted 04:51 Code Status CODE 03/07/25 Transmitted 04:51 Vital Signs DENNIS 03/07/25 In Process 04:51 Review Orders With DENNIS 03/07/25 In Process Adm. 04:51 Encourage Activity As DENNIS 03/07/25 In Process Tolerate 04:51 Npo (Nothing By DIET 03/07/25 Transmitted Mouth) Diet Breakfast Sodium Chloride 0.9% PHA 03/07/25 In Process 05:00 Docusate Sodium PHA 03/07/25 In Process Capsule (Colace 05:00 Acetaminophen Tablet PHA 03/07/25 In Process (Tylenol Tablet) 05:00 Notify Of Changes [facility] 03/07/25 In Process From Base 04:51 Advance Directive DENNIS 03/07/25 In Process 04:51 Basic Metabolic Panel LAB 03/07/25 Logged 05:00 Basic Metabolic Panel LAB 03/08/25 Verified 05:00 Basic Metabolic Panel LAB 03/09/25 Verified 05:00 Basic Metabolic Panel LAB 03/10/25 Verified 05:00 Complete Blood Count LAB 03/07/25 Logged 05:00 Complete Blood Count LAB 03/08/25 Verified 05:00 Complete Blood Count LAB 03/09/25 Verified 05:00 Complete Blood Count LAB 03/10/25 Verified 05:00 Complete Blood Count LAB 03/11/25 Verified 05:00 Patient Condition ORDERS 03/07/25 Transmitted 04:51 Allergies DENNIS 03/07/25 In Process 04:51 Ondansetron Hcl PHA 03/07/25 In Process (Zofran) 05:00 Morphine Sulfate PHA 03/07/25 In Process Injection 05:00 Enoxaparin Sodium PHA 03/07/25 In Process (Lovenox) 10:00 Nitroglycerin PHA 03/07/25 In Process Sublingual (Ntrostat 05:00 Morphine Sulfate PHA 03/07/25 In Process Injection 05:00 Stat Ekg For Chest [facility] 03/07/25 In Process Pain 04:51 Notify Md Of Changes [facility] 03/07/25 In Process From Base 04:51 Ble[place] Pulp For [facility] 03/07/25 In Process 24 Hours 04:51 Emergency Dysrhythmia DENNIS 03/07/25 In Process Protocol 04:51 Rhythm Strips Once [facility] 03/07/25 In Process Every Shift 04:51 Oxygen By Nasal RT 03/07/25 Transmitted Cannula 04:51 Nm Hida Scan NM 03/07/25 Logged 04:51 Urinalysis LAB 03/07/25 Logged 04:51 Beta Hcg, Quantitative LAB 03/07/25 In Process 04:51 * Surgical Consult CONS 03/07/25 Transmitted Piperacillin-Tazob PHA 03/07/25 In Process 3.375gm (Zosyn 3.375g 06:00 Pantoprazole PHA 03/07/25 In Process (Protonix) 10:00 Date of Service: Mar 07, 2025 Billing Provider: JONH MCLEOD MD Common Visit Codes: NOT BILLABLE JONH MCLEOD MD 03/07/25 1654: Review of Systems Allergies: Coded Allergies: Egg-derived Products (Unverified Allergy, Intermediate, 03/13/20) food allergy Avocado (Unverified Allergy, Unknown, 03/13/20) DANTE HEARN NP Mar 07, 2025 05:42 JONH MCLEOD MD Mar 07, 2025 16:54
[2025-03-07 05:49] LABS: Hematocrit 35.5 % (36.0-46.0); Hemoglobin 12.1 g/dL (12.2-16.2); Mean Corpuscular Hemoglobin 32.2 pg (28.0-32.0); Mean Corpuscular Volume 94.1 fL (80.0-100.0); Nucleated Red Blood Cells % 0.0 %
[2025-03-07 06:08] LABS: Potassium 4.1 mmol/L (3.5-5.1); Sodium 140 mmol/L (136-145)
[2025-03-07 06:09] LABS: Anion Gap 7 (5-15); Carbon Dioxide 26 mmol/L (20-31)
[2025-03-07 06:12] LABS: Calcium 8.2 mg/dL (8.7-10.4); Chloride 107 mmol/L (98-107)
[2025-03-07 06:15] LABS: BUN/Creatinine Ratio 18.5 (10.0-20.0); Blood Urea Nitrogen 12 mg/dL (9-23); Glucose 83 mg/dL (74-106)
[2025-03-07] MEDS: PIPERACILLIN-TAZOB 3.375GM 100 ML IV SCH (06:31)
--- NOTE | 2025-03-07 07:34 | ECG ---
[facility] Test Date: 2025-03-07 Test Time: 00:06:01 Pat Name: SHIRLEY BRADFORD Department: [facility] ED Patient ID: [facility]-[id number] Room: [address] [place] [address] Gender: F Contract Paralegal: YOVANNY : 1980-01-23 Requested By: CARIDAD QUILES Order Number: [id number] Reading MD: Measurements Intervals [place] Rate: 83 P: 71 WV: 136 QRS: 35 QRSD: 92 T: 51 QT: 363 QTc: 427 Interpretive Statements Sinus rhythm Low voltage, precordial leads Please click the below link to view image of tracing.
--- NOTE | 2025-03-07 07:41 | DVH ---
INDICATION: Cholelithiasis. TECHNIQUE: Multiple real-time sonographic images of the abdomen were obtained. COMPARISON: CT of the abdomen pelvis performed on 03/07/2025. FINDINGS: The liver is homogenous in echogenicity. The liver measures 15.1 cm. No intrahepatic biliar y ductal dilatation is noted. The gallbladder wall measures 0.3 cm and is unremarkable. Gallstones. There is ring down artifact i n the gallbladder wall. The common duct measures 0.5 cm and is unremarkable. No pericholecystic flui d is noted. Negative sonographic garcia's sign. The right kidney measures 10.2 cm. No hydronephrosis. The pancreas is not well visualized due to obscuration from bowel gas. The visualized portions of the IVC and aorta are grossly unremarkable. IMPRESSION: 1. Cholelithiasis without sonographic evidence of acute cholecystitis. 2. Ring down artifact in the gallbladder wall could be seen in the setting of adenomyomatosis.
[2025-03-07 10:00] VITALS: BP 107/67; PULSE 62; RESP 16; TEMP 98.1; O2SAT 100
--- NOTE | 2025-03-07 10:04 | DVH ---
Procedure: NM NM HIDA SCAN Exam Date: 03/07/2025 08:51 AM Clinical History: cholelithiasis Comparison Study: NM GASTRIC EMPTING STUDY on DOS: 02/03/25, UGI GASTROGRAFIN W SMLL BOWEL on DOS: 05/15 Nuclear Medicine Hepatobiliary Scan. Technique: Following the intravenous administration of 6 mCi of technetium 99m labeled Choletec multiple planar abdominal planar images were obtained in anterior projection in 5 minute intervals for 30 minutes . R ight lateral images were obtained at 40 minutes after injection. Findings: The liver appears grossly normal in size. There is no abnormal persistence of the cardiac or blood po ol activity. There is prompt visualization of the gallbladder and excretion of activity into the smal l bowel. Impression: Unremarkable hepatobiliary study without evidence of acute cholecystitis.
[2025-03-07] MEDS: PANTOPRAZOLE 40 MG/10 ML VIAL INJ IV SCH (10:13)
[2025-03-07] MEDS: ENOXAPARIN SOD 40 MG/0.4 ML SYRINGE SC SCH (10:13)
[2025-03-07 10:18] VITALS: BP 107/62; PULSE 62; RESP 16; TEMP 98.1; O2SAT 100
[2025-03-07 10:30] VITALS: PULSE 62; RESP 16; O2SAT 100
[2025-03-07] MEDS ORDERED: POTA1080 PO (10:56)
[2025-03-07] MEDS ORDERED: HYDR-4798 PO (10:56)
[2025-03-07] MEDS ORDERED: ASPI-498 OR (10:56)
[2025-03-07] MEDS ORDERED: LORA-1123 PO (10:56)
--- NOTE | 2025-03-07 12:01 | DVHINCON2 ---
Date of service: Mar 07, 2025 Family History: Diabetes mellitus G8 BROTHER FH: lung cancer G8 MOTHER, , Onset:40's - 50 Hypertension G8 FATHER G8 BROTHER G8 SISTER Prostate carcinoma G8 FATHER Secondary malignant neoplasm of large intestine and rectum G8 FATHER, Onset:40's - 50 Secondary malignant neoplasm of lung G8 MOTHER, Thyroid disease G8 SISTER, Onset:30's - 40 Allergies: Coded Allergies: Egg-derived Products (Unverified Allergy, Intermediate, 03/13/20) food allergy Avocado (Unverified Allergy, Unknown, 03/13/20) Home Meds Active Scripts Simethicone (Gas-X Extra Strength) 125 Mg Chw, 125 MG PO Q4HPRN PRN, #20 TAB.CHEW Prov:CORINE TERRY MD 09/27/24 Omeprazole (Gnp Omeprazole) 20 Mg Tab, 40 MG PO BID, #60 TAB 1 Refill Prov:CORINE TERRY MD 09/27/24 Cyclobenzaprine Hcl (Cyclobenzaprine Hcl) 10 Mg Tab, 10 MG PO TID for 5 Days, #15 TAB Prov:TYRONE SIDHU MD 08/15/23 Baclofen (Baclofen) 10 Mg Tab, 1 TAB PO BID, #10 TAB as needed for muscle spasm Prov:MADELINE RUIZ Q BREWING TECHNICIAN 01/11/23 Hydrocodone-Acetaminophen (Hydrocodone Bitartrate/AC 5-325 mg) 1 Tab Tab, 1 TAB PO Q6HR, #10 TAB as needed for pain Prov:MADELINE RUIZ Q BREWING TECHNICIAN 01/11/23 Ondansetron (Zofran) 4 Mg Tab, 8 MG PO Q8HP PRN, #30 TAB please prescribe OTD form Prov:JULIAN LARA MD 05/16/21 Reported Medications Aspirin (ASPIRIN 81) 81 Mg Tab, 81 MG OR, TAB 03/07/25 Lorazepam (Lorazepam) 1 Mg Tab, 1 TAB PO TID, #90 TAB 03/07/25 Potassium Citrate (Potassium Citrate) 1,080 Mg Tab, 1 TAB PO DAILY, #90 TAB 3 Refills 03/07/25 Hydrocodone-Acetaminophen (Hydrocodone Bitartrate/AC 10-325 mg) 1 Tab Tab, 1 TAB PO, TAB 03/07/25 Current Medications Current Medications Medications (Trade) Dose Ordered Sig/Maico Route PRN Reason Start Time Stop Time Status Last Admin Sodium Chloride 1,000 ml @ 100 mls/hr Q10H IV 03/07/25 05:00 03/07/25 05:10 Docusate Sodium (Colace Capsule) 100 mg BIDPRN PRN PO FOR CONSTIPATION 03/07/25 05:00 Acetaminophen (Tylenol Tablet) 650 mg Q6HP PRN PO PAIN SCALE 1-3 OR TEMP>100.4 03/07/25 05:00 Ondansetron HCl (Zofran) 4 mg Q4HP PRN IV NAUSEA / VOMITING 03/07/25 05:00 Morphine Sulfate 4 mg Q4HPRN PRN IV SEVERE PAIN (7-10 PAIN SCALE) 03/07/25 05:00 Enoxaparin Sodium (Lovenox) 40 mg DAILY SC 03/07/25 10:00 03/07/25 10:13 Nitroglycerin (Ntrostat Sublingual) 0.4 mg Q5MINP PRN SL FOR CHEST PAIN 03/07/25 05:00 Morphine Sulfate 2 mg Q30M PRN IV FOR CHEST PAIN 03/07/25 05:00 Piperacillin Sod/ Tazobactam Sod 100 ml @ 100 mls/hr Q8HR IV 03/07/25 06:00 03/07/25 06:31 Pantoprazole Sodium (Protonix) 40 mg DAILY IV 03/07/25 10:00 03/07/25 10:13 Vital Signs Vital Signs Date Time Temp Pulse Resp B/P (MAP) Pulse Ox O2 Delivery O2 Flow Rate FiO2 03/07/25 10:18 98.1 62 16 107/62 (77) 100 98.1 03/07/25 07:20 Room Air* 0 21 Labs/Diagnostic Data Labs Test 03/07/25 05:21 03/07/25 03:27 03/07/25 00:48 03/06/25 21:07 Range/Units White Blood Count 4.8 4.4-10.8 10^3/uL Red Blood Count 3.77 L 4.0-5.20 10^6/uL Hemoglobin 12.1 L 12.2-16.2 g/dL Hematocrit 35.5 #L 36.0-46.0 % Mean Corpuscular Volume 94.1 80.0-100.0 fL Mean Corpuscular Hemoglobin 32.2 H 28.0-32.0 pg Mean Corpuscular Hemoglobin Concent 34.2 32.0-36.0 g/dL Red Cell Distribution Width 14.5 H 11.8-14.3 % Platelet Count 179 140-450 10^3/uL Mean Platelet Volume 8.6 6.9-10.8 fL Neutrophils (%) (Auto) 54.8 37.0-80.0 % Lymphocytes (%) (Auto) 34.1 10.0-50.0 % Monocytes (%) (Auto) 8.5 0.0-12.0 % Eosinophils (%) (Auto) 2.0 0.0-7.0 % Basophils (%) (Auto) 0.6 0.0-2.0 % Neutrophils # (Auto) 2.6 1.6-8.6 10 ^3/uL Lymphocytes # (Auto) 1.6 0.4-5.4 10 ^3/uL Monocytes # (Auto) 0.4 0-1.3 10 ^3/uL Eosinophils # (Auto) 0.1 0-0.8 10 ^3/uL Basophils # (Auto) 0 0-0.2 10 ^3/uL Nucleated Red Blood Cells 0.0 % Sodium Level 140 136-145 mmol/L Potassium Level 4.1 3.5-5.1 mmol/L Chloride Level 107 98-107 mmol/L Carbon Dioxide Level 26 20-31 mmol/L Anion Gap 7 5-15 Blood Urea Nitrogen 12 9-23 mg/dL Creatinine 0.65 # 0.550-1.02 mg/dL Glomerular Filtration Rate Calc 110 >90 mL/min BUN/Creatinine Ratio 18.5 10.0-20.0 Serum Glucose 83 74-106 mg/dL Calcium Level 8.2 L 8.7-10.4 mg/dL Troponin I High Sensitivity 6 </=34 ng/L Beta HCG, Quantitative 0.1 L 1.5-4.2 mIU/mL Total Bilirubin 0.4 0.2-1.0 mg/dL Aspartate Amino Transferase (AST) 42 H 13-40 U/L Alanine Aminotransferase (ALT) 14 7-40 U/L Alkaline Phosphatase 56 46-116 U/L B-Type Natriuretic Peptide 24.04 0-100 pg/mL Lipase 56 H 12-53 U/L Assessment CHOLELITHIASIS,BILIARY COLIC, HIDA SCAN NEGATIVE FOR CHOLECYSTITIS, EXPLAINED TREATMENT AND OPERATION WELL RISKS AND COMPLICATIONS, SHE WANTS TO TALK TO , I WILL SCHEDULE FOR,TOMORROW,SHE KNOWS SHE CAN CANCEL OPERATION AND SCHEDULE ELECTIVELY. Plan discussed with: Patient AWA MAIN MD Mar 07, 2025 12:01
[2025-03-07 13:00] VITALS: BP 109/72; PULSE 71; RESP 16; TEMP 98; O2SAT 99
--- NOTE | 2025-03-07 15:42 | DVHDS2 ---
Discharge Summary Date of Admission Mar 07, 2025 at 04:51 Date of Discharge: Mar 07, 2025 Labs/Diagnostic Data: Laboratory Results Test 03/07/25 05:21 03/07/25 03:27 03/07/25 00:48 03/06/25 21:07 White Blood Count 4.8 10^3/uL (4.4-10.8) Red Blood Count 3.77 10^6/uL (4.0-5.20) Hemoglobin 12.1 g/dL (12.2-16.2) Hematocrit 35.5 % (36.0-46.0) Mean Corpuscular Volume 94.1 fL (80.0-100.0) Mean Corpuscular Hemoglobin 32.2 pg (28.0-32.0) Mean Corpuscular Hemoglobin Concent 34.2 g/dL (32.0-36.0) Red Cell Distribution Width 14.5 % (11.8-14.3) Platelet Count 179 10^3/uL (140-450) Mean Platelet Volume 8.6 fL (6.9-10.8) Neutrophils (%) (Auto) 54.8 % (37.0-80.0) Lymphocytes (%) (Auto) 34.1 % (10.0-50.0) Monocytes (%) (Auto) 8.5 % (0.0-12.0) Eosinophils (%) (Auto) 2.0 % (0.0-7.0) Basophils (%) (Auto) 0.6 % (0.0-2.0) Neutrophils # (Auto) 2.6 10 ^3/uL (1.6-8.6) Lymphocytes # (Auto) 1.6 10 ^3/uL (0.4-5.4) Monocytes # (Auto) 0.4 10 ^3/uL (0-1.3) Eosinophils # (Auto) 0.1 10 ^3/uL (0-0.8) Basophils # (Auto) 0 10 ^3/uL (0-0.2) Nucleated Red Blood Cells 0.0 % Sodium Level 140 mmol/L (136-145) Potassium Level 4.1 mmol/L (3.5-5.1) Chloride Level 107 mmol/L (98-107) Carbon Dioxide Level 26 mmol/L (20-31) Anion Gap 7 (5-15) Blood Urea Nitrogen 12 mg/dL (9-23) Creatinine 0.65 mg/dL (0.550-1.02) Glomerular Filtration Rate Calc 110 mL/min (>90) BUN/Creatinine Ratio 18.5 (10.0-20.0) Serum Glucose 83 mg/dL (74-106) Calcium Level 8.2 mg/dL (8.7-10.4) Troponin I High Sensitivity 6 ng/L (</=34) Beta HCG, Quantitative 0.1 mIU/mL (1.5-4.2) Total Bilirubin 0.4 mg/dL (0.2-1.0) Aspartate Amino Transferase (AST) 42 U/L (13-40) Alanine Aminotransferase (ALT) 14 U/L (7-40) Alkaline Phosphatase 56 U/L (46-116) B-Type Natriuretic Peptide 24.04 pg/mL (0-100) Lipase 56 U/L (12-53) Other Laboratory Tests 03/07/25 05:21 Brief Hx & Hospital Course: 45-year-old female with a known history of brain tumor surgery in the past, hypotension, who initially presented to the hospital with epigastric pain radiated to the back associated with the nausea. Patient was found to have coli lithiasis. Patient underwent HIDA scan which was negative for acute cholecystitis. Patient is currently tolerating diet. Patient is requesting to go home with the outpatient follow up with General surgery for elective cholecystectomy if indicated. Patient is being discharged under stable condition. Condition at Discharge: Stable Final Diagnosis/Problems List 1. Epigastric pain 2. Cholelithiasis 3. Ruled out acute cholecystitis 4. Hypertension 5. [place] [facility] [place] Disposition: Home SNF Discharge Will this Physician continue t: No Discharge Instruct/Medications Diet: Cardiac 2g Na,low cholest Activity: No Restrictions, As Tolerated Follow Up/Referral: Please follow up with the PCP in 1-2 weeks Follow up with Dr. Albino Funez in 1-2 weeks for elective cholecystectomy Medications: Resume home medications. Continued Medications: Aspirin (Aspirin 81) 81 Mg Tab 81 MG OR, TAB Baclofen (Baclofen) 10 Mg Tab 1 TAB PO BID, #10 TAB as needed for muscle spasm Cyclobenzaprine Hcl (Cyclobenzaprine Hcl) 10 Mg Tab 10 MG PO TID for 5 Days, #15 TAB Hydrocodone-Acetaminophen (Hydrocodone Bitartrate/AC 5-325 mg) 1 Tab Tab 1 TAB PO Q6HR, #10 TAB as needed for pain Hydrocodone-Acetaminophen (Hydrocodone Bitartrate/AC 10-325 mg) 1 Tab Tab 1 TAB PO, TAB Lorazepam (Lorazepam) 1 Mg Tab 1 TAB PO TID, #90 TAB Omeprazole (Gnp Omeprazole) 20 Mg Tab 40 MG PO BID, #60 TAB 1 Refill Ondansetron (Zofran) 4 Mg Tab 8 MG PO Q8HP PRN, #30 TAB please prescribe OTD form Potassium Citrate (Potassium Citrate) 1,080 Mg Tab 1 TAB PO DAILY, #90 TAB 3 Refills Simethicone (Gas-X Extra Strength) 125 Mg Chw 125 MG PO Q4HPRN PRN, #20 TAB.CHEW Scheduled Baclofen (Baclofen), 1 TAB PO BID Cyclobenzaprine Hcl (Cyclobenzaprine Hcl), 10 MG PO TID Hydrocodone-Acetaminophen (Hydrocodone Bitartrate/AC 5-325 mg), 1 TAB PO Q6HR Lorazepam (Lorazepam), 1 TAB PO TID, (Reported) Omeprazole (Gnp Omeprazole), 40 MG PO BID Potassium Citrate (Potassium Citrate), 1 TAB PO DAILY, (Reported) Scheduled PRN Ondansetron (Zofran), 8 MG PO Q8HP PRN Simethicone (Gas-X Extra Strength), 125 MG PO Q4HPRN PRN Miscellaneous Medications Aspirin (Aspirin 81), 81 MG OR, (Reported) Hydrocodone-Acetaminophen (Hydrocodone Bitartrate/AC 10-325 mg), 1 TAB PO, (Reported) Discharge Statement: "Patient was advised to return to the ER or call 911 if any headaches, dizziness, shortness of breath, chest pain, abdominal pain, bleeding, fevers, or worsening of medical condition. Patient was counseled about treatment plan, medications, possible side effects, patientverbalized understanding. All questions were answered to the best of my ability. This discharge took greater then 30 minutes in planning, reviewing documentation, counseling the patient, and discussing with other team members." ASSESSMENT ASSESSMENT Assessment 1. Epigastric pain 2. Cholelithiasis 3. Ruled out acute cholecystitis 4. Hypertension 5. [place] of [place] [facility] [place] Date of Service: Mar 07, 2025 Billing Provider: JONH MCLEOD MD Common Visit Codes: NOT BILLABLE JONH MCLEOD MD Mar 07, 2025 15:42
[2025-03-07 16:59] VITALS: BP 107/62; PULSE 62; RESP 16; TEMP 98; O2SAT 100
[2025-03-07 17:00] VITALS: BP 104/62; PULSE 68; RESP 17; TEMP 98.4; O2SAT 99
--- NOTE | 2025-03-07 20:06 | ECG ---
[facility] Test Date: 2025-03-06 Test Time: 20:54:36 Pat Name: SHIRLEY BRADFORD Department: Room: 0277 Gender: F Vp & General Counsel: SUNI : 1980-01-23 Requested By: CARIDAD QUILES Order Number: [id number] Reading MD: Measurements Intervals [place] Rate: 114 P: 0 VT: 0 QRS: -1 QRSD: 108 T: 49 QT: 319 QTc: 440 Interpretive Statements Atrial fibrillation Artifact in lead(s) I,II,III,aVR,aVL,aVF,V1,V2 Please click the below link to view image of tracing.
== END 2025-03-07 17:45 | disposition home or self-care (01) | DRG 446 ==
LOC: ER 20:50 → OVERFLOW 03-07 04:51 → WEST WING 03-07 10:06
PROVIDERS: ADMIT Nurse Practitioner Family; ATTEND Nurse Practitioner Family
DX: K80.20 Calculus of gallbladder without cholecystitis without obstruction (principal); I10 Essential (primary) hypertension; Z83.3 Family history of diabetes mellitus; Z82.49 Family history of ischemic heart disease and other diseases of the circulatory system; Z80.1 Family history of malignant neoplasm of trachea, bronchus and lung; Z85.038 Personal history of other malignant neoplasm of large intestine
CPT/HCPCS: 36415; 71045; 71260; 74177; 76705; 78226; 80048; 82247; 83690; 83880; 84075; 84450; 84460; 84484; 84702; 85025; 93005; 96361; 96374; 96375; 96376; G0378; J1885; J2405; J2470; J2543